=== PATIENT | male | born 1955 | race Caucasian/White ===

== ENCOUNTER → 2021-04-03 02:56 | Outpatient (CLI) | payer MEDICARE, OTHER, SELFPAY ==
[2021-04-03 22:41] LABS: SARS-CoV-2 RNA PCR Negative
== END ==
PROVIDERS: PCP Internal Medicine; Visit Provider Internal Medicine
DX: Z20.822 Contact with and (suspected) exposure to COVID-19 (principal)
CPT/HCPCS: C9803; U0003; U0005

== ENCOUNTER → 2021-05-13 03:44 | Outpatient (CLI) | payer MEDICARE, OTHER, SELFPAY ==
[2021-05-13 19:59] LABS: SARS-CoV-2 RNA PCR Negative
== END ==
PROVIDERS: PCP Internal Medicine; Visit Provider Internal Medicine
DX: Z20.822 Contact with and (suspected) exposure to COVID-19 (principal)
CPT/HCPCS: C9803; U0003; U0005

== ENCOUNTER 2021-06-05 08:27 | Outpatient (CLI) | payer MEDICARE, OTHER, SELFPAY ==
--- NOTE | 2021-06-05 08:45 | EST_ITS ---
Patient Info Name: Edgar Cardona Age: 66 years : 1955 Gender: Male Ht: 66 in Wt: 215 lbs BSA: 2.17 m2 Exam Date: 06/05/2021 9:02 AM Exam Location: [facility] Patient Status: Outpatient Admit Date: 06/05/2021 Staff Ordering Physician: Shalom Prater DO Formal Waiter/Waitress: Xiang Marie RDCS, RT Attending Provider: DR. CHOPRA Referring Physician: Moi CARVAJAL; Exercise Technologist: Xiang Marie RDCS, RT Exercise Physician: Taz Chopra DO Exam Type: CA stress echo Study Info Indications R06.02 - Shortness of breath Treadmill exercise stress echocardiogram is performed. Summary 1. 1. Negative Karson exercise stress test for ischemic ST changes by ECG criteria. 2. 2. Good functional capacity, achieving 8.9 METs of workload. 3. 3. Appropriate HR response to exercise. 4. 4. Appropriate HR recovery at 1 minute post exercise. 5. 5. Negative stress echocardiogram for ischemia by wall motion analysis. 6. 6. Patient informed of the above results. Stress Echo Findings Left Ventricle Appropriate increase in LV endocardial thickening with systole. Appropriate augmentation of contractility with systole. No wall motion abnormality. Left Ventricle Normal LV systolic function, no wall motion abnormality. Protocol: Karson Stress ECG Details Stage: REST Duration (min): 1 min : 43 sec Speed (mph): 0.0 Grade (%): 0 HR (bpm): 74 SBP (mmHg): 123 DBP (mmHg): 75 METS: --- Stage: REST Duration (min): 15 min : 58 sec Speed (mph): 0.0 Grade (%): 0 HR (bpm): 88 SBP (mmHg): 123 DBP (mmHg): 75 METS: --- Stage: STAGE 1 Duration (min): 1 min : 0 sec Speed (mph): 1.7 Grade (%): 10 HR (bpm): 106 SBP (mmHg): 123 DBP (mmHg): 75 METS: --- Stage: STAGE 1 Duration (min): 2 min : 0 sec Speed (mph): 1.7 Grade (%): 10 HR (bpm): 123 SBP (mmHg): 123 DBP (mmHg): 75 METS: --- Stage: STAGE 1 Duration (min): 3 min : 0 sec Speed (mph): 1.7 Grade (%): 10 HR (bpm): 135 SBP (mmHg): 123 DBP (mmHg): 75 METS: --- Stage: STAGE 2 Duration (min): 1 min : 0 sec Speed (mph): 2.5 Grade (%): 12 HR (bpm): 128 SBP (mmHg): 123 DBP (mmHg): 75 METS: --- Stage: STAGE 2 Duration (min): 2 min : 0 sec Speed (mph): 2.5 Grade (%): 12 HR (bpm): 132 SBP (mmHg): 175 DBP (mmHg): 45 METS: --- Stage: STAGE 2 Duration (min): 3 min : 0 sec Speed (mph): 2.5 Grade (%): 12 HR (bpm): 136 SBP (mmHg): 175 DBP (mmHg): 45 METS: --- Stage: STAGE 3 Duration (min): 1 min : 0 sec Speed (mph): 3.4 Grade (%): 14 HR (bpm): 139 SBP (mmHg): 167 DBP (mmHg): 51 METS: --- Stage: STAGE 3 Duration (min): 1 min : 4 sec Speed (mph): 0.0 Grade (%): 0 HR (bpm): 140 SBP (mmHg): 167 DBP (mmHg): 51 METS: --- Stage: RECOVERY Duration (min): 0 min : 55 sec Speed (mph): 0.0 Grade (%): 0 HR (b
== END 2021-06-05 08:28 | disposition home or self-care (01) ==
LOC: ANHCARD 08:29
PROVIDERS: PCP Internal Medicine; Visit Provider Internal Medicine
DX: R06.02 Shortness of breath (principal)
CPT/HCPCS: 93351

== ENCOUNTER 2021-09-13 16:56 | Emergency (ER) | payer MEDICARE, OTHER, SELFPAY ==
--- NOTE | ~2021-09-13 | XR_ITS ---
EXAMINATION: XR shoulder LT min 2V INDICATION: Left shoulder pain TECHNIQUE: Four views of the left shoulder are submitted. COMPARISON: None FINDINGS: Normal alignment. No fracture. There is severe osteoarthritis of the acromioclavicular join t and moderate osteoarthritis of the glenohumeral joint. Soft tissues are unremarkable. IMPRESSION: 1. No acute osseous abnormality. Reviewed, dictated and finalized at location F. [employer]
[2021-09-13 17:37] VITALS: BP 157/80; PULSE 85; RESP 15; TEMP 36.8; O2SAT 96
--- NOTE | 2021-09-13 17:51 | ED.FALL ---
HPI - Fall General Chief Complaint: Fall Stated Complaint: left shoulder pain, fall Time Seen by Provider: 09/13/21 17:50 History of Present Illness HPI Narrative: 66-year-old male presents the emergency room with complaints of left shoulder pain status post fall on the ice. States about 3 hours ago was stepping out of his truck slipped and fell forward landing on his butt and attempted to catch himself with an outstretched arm. Left shoulder pain is worse with range of motion in all tipton of movement. Denies taking any sftm-muc-tmftfat medications for pain prior to arrival. No history of left shoulder injury. Related Data Home Medications Medication Instructions Recorded Confirmed insulin pump syringe 3 mL #10 each 06/29/19 05/14/21 simvastatin 40 mg tablet 40 mg PO DAILY 06/29/19 05/14/21 triamterene 37.5 1 cap PO DAILY 07/24/20 05/14/21 mg-hydrochlorothiazide 25 mg capsule quinapril 20 mg tablet 20 mg PO DAILY 11/19/20 05/14/21 Allergies Allergy/AdvReac Type Severity Reaction Status Date / Time Sulfa (Sulfonamide Allergy Unknown unknow Verified 05/14/21 15:11 Antibiotics) Review of Systems Review of Systems: CONSTITUTIONAL: Denies fever, chills, or sweats. EYES: Denies visual changes, redness, or discharge. ENT: Denies rhinorrhea, congestion, sore throat, or otalgia. CARDIOVASCULAR: Denies chest pain, palpitations, or edema. RESPIRATORY: Denies cough or dyspnea. GASTROINTESTINAL: Denies abdominal pain, nausea, vomiting, or diarrhea. GENITOURINARY: Denies dysuria or hematuria. SKIN: Denies rash or itching. MUSCULOSKELETAL: Denies back pain, joint pain, or myalgia. Left shoulder pain per HPI NEUROLOGIC: Denies headache, numbness, dizziness, or weakness. PSYCHIATRIC: Denies anxiety or depression. [facility] Past Medical History Medical History Diabetes High cholesterol Surgical History Surgical History History of cholecystectomy 2000 History of extraction of renal calculus History of knee replacement 2009 History of lithotripsy History of pancreatectomy 2000 Family History Family History Father Family history of multiple sclerosis Sibling Patient's sister is in good health Mother Family history of arthritis Family history of congestive heart failure Social History Social History Smoking status: Never smoker Second hand tobacco smoke exposure: No Alcohol intake: never Substance use: never Substance use type: does not use Exam Narrative: GENERAL: Well-appearing, well-nourished, and in no acute distress. HEAD: Normocephalic, atraumatic. EYES: PERRLA and EOMI. ENT: Nares clear, no rhinorrhea or epistaxis. Mucous membranes moist. Oropharynx without tonsillar hypertrophy exudate or other lesions. Bilateral TMs pearly murrieta nonbulging NECK: Supple. No adenopathy or masses. No carotid bruits or JVD CHEST: Clear to auscultation. No respiratory distress. No wheezes rales or rhonchi HEART: Regular rate and rhythm. No murmur heard. Normal peripheral pulses. ABDOMEN: Soft, nontender, nondistended, normal active bowel sounds. EXTREMITIES: Left shoulder: tender to palpation to AC joint. No obvious bony abnormality. Limited range of motion in all tipton of movement. Unable to assess rotator cuff pathology due to pain. Neurovascular is distally intact. SKIN: Warm, dry, no rash. NEURO: No focal deficits. Alert and oriented x3. PSYCH: Normal mood and affect. Course Course Emergency Course: Plain x-rays of the shoulder demonstrated no acute bony abnormality. Vital Signs Vital signs: Vital Signs Temperature 36.8 C 09/13/21 17:37 Pulse Rate 85 09/13/21 17:37 Respiratory Rate 15 09/13/21 17:37 Blood Pressure 157/80 H 09/13/21 17:37 Pulse Oximetry
== END 2021-09-13 19:30 | disposition home or self-care (01) ==
LOC: ANHED 19:03
PROVIDERS: Emergency Provider Nurse Practitioner Family; PCP Internal Medicine
DX: S49.92XA Unspecified injury of left shoulder and upper arm, initial encounter (principal); E11.9 Type 2 diabetes mellitus without complications; E78.00 Pure hypercholesterolemia, unspecified; Z96.41 Presence of insulin pump (external) (internal); Z79.4 Long term (current) use of insulin; Z96.659 Presence of unspecified artificial knee joint; Z87.442 Personal history of urinary calculi; W00.0XXA Fall on same level due to ice and snow, initial encounter
CPT/HCPCS: 73030; 99283; A4565

== ENCOUNTER → 2022-02-18 00:14 | Outpatient (CLI) | payer MEDICARE, OTHER, SELFPAY ==
[2022-02-18 11:59] LABS: SARS-CoV-2 RNA PCR Negative
== END ==
PROVIDERS: PCP Internal Medicine; Visit Provider Internal Medicine
DX: R68.89 Other general symptoms and signs (principal); Z20.822 Contact with and (suspected) exposure to COVID-19
CPT/HCPCS: C9803; U0003; U0005

== ENCOUNTER 2022-12-24 14:50 | Outpatient (CLI) | payer MEDICARE, OTHER, SELFPAY ==
--- NOTE | ~2022-12-24 | US_ITS ---
Ultrasound of the right buttock CLINICAL HISTORY: Palpable area of hardening/mass at the inner cleft of the right buttock TECHNIQUE: Real-time sonographic imaging was performed of the right buttock at the area of clinical c oncern. FINDINGS: There is a superficial area of irregular shaped apparent shadowing calcification at the are a of clinical concern. No corresponding finding seen on the left side for comparison. No definite vis ible associated soft tissue mass. IMPRESSION: Irregular soft tissue calcification at the area of clinical concern, likely accounting for the area o f palpable concern. Retrospectively, this probably correlates with soft tissue calcifications in this region seen on prior CT dated 09/06/2016. Given the time interval, this is consistent with benign fin ding, of uncertain precise etiology, but consistent with nonspecific dystrophic soft tissue calcifica tion. Reviewed, dictated and finalized at location M. IMPRESSION: Irregular soft tissue calcification at the area of clinical concern, likely acc ounting for the area of palpable concern. Retrospectively, this probably correl ates with soft tissue calcifications in this region seen on prior CT dated 09/06. Given the time interval, this is consistent with benign finding, of unce rtain precise etiology, but consistent with nonspecific dystrophic soft tissue calcification.
== END 2022-12-24 14:51 | disposition home or self-care (01) ==
PROVIDERS: PCP Family Medicine; Visit Provider Family Medicine
DX: R22.2 Localized swelling, mass and lump, trunk (principal); M61.9 Calcification and ossification of muscle, unspecified
CPT/HCPCS: 76705

== ENCOUNTER 2024-05-13 10:52 | Outpatient (CLI) | payer MEDICARE, OTHER, SELFPAY ==
--- NOTE | ~2024-05-13 | XR_ITS ---
XR knee RT 3V 05/13/2024 11:06 Indication: Right knee pain Procedure: 3 views right knee Comparison: No prior studies for comparison. Findings: Moderate tricompartment osteoarthritis. No fracture, subluxation or dislocation. No signifi cant joint effusion. No foreign bodies. Impression: 1: Moderate tricompartment osteoarthritis of the right knee. Reviewed, dictated and finalized at location B. Impression: 1: Moderate tricompartment osteoarthritis of the right knee.
== END 2024-05-13 10:53 | disposition home or self-care (01) ==
LOC: MICIMG 10:53
PROVIDERS: PCP Family Medicine; Visit Provider Family Medicine
DX: M17.11 Unilateral primary osteoarthritis, right knee (principal); M25.561 Pain in right knee
CPT/HCPCS: 73562

== ENCOUNTER 2024-11-02 12:30 | Outpatient (CLI) | payer MEDICARE, OTHER, SELFPAY ==
--- NOTE | ~2024-11-02 | XR_ITS ---
Clinical Indication: Cough PA and lateral views of the chest: Comparison: 04/26/2019 Findings: Stable calcified right upper lobe nodule. The lungs are otherwise clear, without evidence o f focal consolidation or pleural effusion. Cardiomediastinal silhouette is within normal limits. Bon es and soft tissues are unremarkable. Impression: No acute abnormality. Reviewed, dictated and finalized at location . Impression: No acute abnormality.
--- OUTSIDE RECORDS SUMMARY | 2024-11-02 13:34 | XMS_ITS | Encounter Summary ---
Author Organization [facility] Address [address] [place] [address] Phone Care Team Providers Care Tape Recorder Mechanic Name Role Phone Alvin FITZPATRICK MD, Andrew Saucedo Unavailable [phone] Rex Adler MD Primary Care Provider [phone] Bob Matute MD Unavailable [phone] Shalom Prater DO Primary Care Provider Aaliyah Clark OT Unavailable Ann Penn MD Primary Care Provider [phone] Matteo Harp MD Primary Care Provider [phone] Encounter Details Date Type Department Care Team (Late st Contact Info) Description 11/26/2017 Orders Only [facility] ProviderDmitry MD [address] [place] [id number] Social History Tobacco Use Types Packs/Day Years Used Date Smoking Tobacco: Never Sex and Gender Information Value Date Recorded Sex Assigned at Not on file Legal Sex Male 7:20 PM [employer] Gender Identity Not on file Sexual Orientation Straight 03/09/2019 8: 26 AM CDT documented as of this encounter Plan of Treatment Not on file documented as of this encounter Procedures Procedure Name Priority Date/Time Associated Diagnosis Comments DISCHARGE LABORATORY CUMULATIVE REPORT 11/26/2017 12:00 AM CDT documented in this encounter Results * DISCHARGE LABORATORY CUMULATIVE REPORT (11/26/2017 12:00 AM CDT) Narrative 11/26/2017 12:00 AM CDT Ordered by an unspecified provider. us Historical Provider LAB BLOOD ORDERABLES Rosalba l Result documented in this encounter Visit Diagnoses Not on filedocumented in this encounter Additional Health Concerns Infection Onset Date Last Indicated Resolved Time MRSA Comment:Backloaded May 08, 2011 Swabs negative for MRSA on 12/06 & 12/08 Khushboo Gomez RN 12/15/2019 11/06/2010 11/06/2010 12/15/2019 9:49 AM C DT documented as of this encounter Care Teams Tape Recorder Mechanic Relationship Specialty Start Date End Date Rex Adler MD [address] [place] [address] PCP - General Internal Medicine 11/24/17 12/08/17 Shalom Prater DO [address] [place] [address] PCP - General 12/09/17 11/05/22 Ann Penn MD [address] [facility] [address] [place] [address] PCP - General Internal Medicine 11/06/22 09/01/24 Matteo Harp MD [address] [place] [address] PCP - General Family Practice 09/02/24 Andrew Esquivel III, MD [address] [place] [address] Consulting Physician Rheumatology 11/11/17 Bob Matute MD [address] [facility] [address] [place] [address] Referring Physician Endocrinology Diabetes & Metabolism 12/04/17 Aaliyah Clark OT [address] [facility] [address] [place] [address] Occupational Therapist Occupational Therapy 10/14/19 documented as of this encounter
--- OUTSIDE RECORDS SUMMARY | 2024-11-02 13:34 | XMS_ITS | Clinical Summary ---
Author Organization [facility] Address [address] [place] [address] Care Team Providers Care Account General Manager Name Role Phone Alvin FITZPATRICK MD, Andrew Saucedo Unavailable [phone] Bob Matute MD Unavailable [phone] Aaliyah Clark OT Unavailable Matteo Harp MD Primary Care Provider [phone] Allergies Active Allergy Reactions Criticality Noted Date Comments Chlorhexidine Itching,Other (See comments) High 08/06/2022 Major issues with this in his last surgery Sulfa (Sulfonamide Antibiotics) Unknown,Rash Medium 08/19/2021 Medications multivitamin capsuleIndicati ons:Vitamin Deficiency Prevention Take 1 capsule by mouth every morning Active diabetic supplies, miscellan. misc Dexcom device currently on L FA but will be moved prior to day of surgery Active insulin lispro (HumaLOG) 100 unit/mL vial for injectionIndica tions:Secondary diabetes mellitus (HCC),Post-panc reatectomy diabetes (HCC) USE HUMALOG INSULIN PER INSULIN PUMP. MAXIMUM DAILY DOSE IS 100 UNITS. 90 mL 1 Active Additional Information Patient taking differently: USE HUMALOG INSULIN PER INSULIN PUMP. MAXIMUM DAILY DOSE IS 100 UNITS.Medtronic, CGM, Indications: type 1 diabetes mellitus, Type 1B, Informant: Self, Reported on 10/16/2022 albuterol HFA (PROVENTIL HFA,VENTOLIN HFA,PROAIR HFA) 90 mcg/actuation inhaler Inhale 2 puffs every 4 (four) hours as needed for wheezing 1 each 2 Active Additional Information Patient taking differently:2 puff inhalation Every 4 hours PRN,wheezing, shortness of breath, Indications: Acute Asthma Attack, Informant: Self, Reported on 10/16/2022 simvastatin (ZOCOR) 40 mg tabletIndicatio ns:Secondary diabetes mellitus (HCC) Take one tab PO daily 90 tablet 3 2 Active Additional Information Patient taking differently: 40 mg oral Every morning, Take one tab PO daily,Indications: hyperlipidemia, Informant: Self, Reported on 10/16/2022 triamterene-hyd roCHLOROthiazid e 37.5-25 mg per tabletIndicatio ns:HTN Take 1 tablet/capsule by mouth every morning 2 Active lisinopriL (PRINIVIL,ZESTR IL) 20 mg tabletIndicatio ns:hypertension Take 1 tablet (20 mg total) by mouth every morning 2 Active pregabalin (LYRICA) 75 mg capsule Take 1 capsule (75 mg total) by mouth 2 (two) times a day 5 Active meloxicam (MOBIC) 15 mg tablet Take 1 tablet (15 mg total) by mouth daily 45 tablet 5 12/17/19 25 Active Active Problems Problem Noted Date Diagnosed Date Vitamin D deficiency 11/21/2020 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 Check tsh. Chronic fatigue 06/08/2020 Assessment & Plan (06/08/2020 1:33 PM MAINFRAME DEVELOPER): Check tsh. Arthritis of carpometacarpal (CMC) joint of righ t thumb 05/03/2020 Overview (05/03/2020): Added automatically from request for surgery [id number] Arthritis of carpometacarpal (CMC) joint of left thumb 05/03/2020 Overview (05/29/2020): Added automatically from request for surgery [id number] Insulin pump titration 12/15/2019 Assessment & Plan (12/16/2019 1:32 PM CDT): Insulin pump and supplies at bedside. Mr. Cardona is alert and oriented x 3 and has the mental capacity and manual dexterity to self-administer his own insulin pump. We reviewed the need to complete the insulin pump bedside log as a stipulation to use the insulin pump as an inpatient. Mr. Cardona agrees to complete the insulin pump bedside log as required. Insulin pump insertion site last changed 12/13/2019; due to be changed 12/16. Dexcom CGM site due to be changed 12/17/2019. Insulin pump settings adjusted to reflect current insulin requirements during this admission. INSULIN PUMP MODEL: Medtronic Insulin pump with Dexcom CGM INSULIN: Humalog SETTINGS: TIME: BASAL RATE: ICR: TDB: 40.525 units 0000 1.20 1:7.5 0300 1.75 1:7.5 0800 1.80 1:7.5 1500 1.55 1:7.5 1830 1.70 1:7.5 2000 1.90 1:7.5 SENSITIVITY: 25 TARGET: 95-110 AIT: 2 hours High risk medication use 12/15/2019 Assessment & Plan (12/15/2019 5:11 PM CDT): Intense insulin regimen in the setting of variable oral intake and post operative stress places patient at increased risk of hypoglycemia/hyperglycemia which may have serious metabolic, CV and neuro consequences. We will continue to intensely monitor blood glucose and titrate insulin as needed to optimize glycemic control to avoid hypoglycemic/hyperglycemic events. Osteoarthritis of glenohumeral joint, right 11/17 Overview (12/05/2019): Added automatically from request for surgery [id number] Assessment & Plan (12/16/2019 1:32 PM CDT): S/P right total shoulder replacement yesterday. Post-operative stress may complicate glycemic management. Good glycemic management required to promote healing. Right foot pain 07/18/2019 Assessment & Plan (09/14/2019 7:27 AM MAINFRAME DEVELOPER): Was given referral for foot xray and mri but has not done it yet. Has had rt lateral mid foot pain and swelling x 2.5 months. No injury. Assessment & Plan (07/18/2019 12:41 PM MAINFRAME DEVELOPER): Will xray and Mri. Has had rt lateral mid foot pain and swelling x 2.5 months. No injury. DISH (diffuse idiopathic skeletal hyperostosis) 11/29/2018 Assessment & Plan (06/08/2020 7:27 AM MAINFRAME DEVELOPER): CXR in 11/2017 revealed DISH of the thoracic spine. Denies any back pain. Assessment & Plan (09/14/2019 7:26 AM MAINFRAME DEVELOPER): CXR in 11/2017 revealed DISH of the thoracic spine. Denies any back pain. Assessment & Plan (08/18/2019 8:14 AM MAINFRAME DEVELOPER): CXR in 11/2017 revealed DISH of the thoracic spine. Denies any back pain. Assessment & Plan (04/20/2019 4:14 PM CDT): CXR in 11/2017 revealed DISH of the thoracic spine. Denies any back pain. Assessment & Plan (03/02/2019 7:29 AM CDT): Denies back pain. Assessment & Plan (11/29/2018 9:20 AM CDT): CXR in 11/2017 revealed DISH of the thoracic spine. Denies any back pain. Right leg swelling 11/29/2018 Assessment & Plan (11/29/2018 9:21 AM CDT): US venous doppler Rt LE (08/28/18): No DVT in right lower limb. Edema due to congestive heart failure 05/24/2018 Undifferentiated spondyloarthropathy 04/29/2018 Assessment & Plan (06/08/2020 1:32 PM MAINFRAME DEVELOPER): Images from the original note were not included. Has not been here since 08/2019. This was a phone visit from 1:05 to 1:28 pm. From history pt appears to be doing well. Has been off mtx since 11/2019 and is feeling good he states. Will order labs to recheck serologies, rt hand US and cxr and pt will come in in 1 week to get them then make visit in 1 month to re-evaluate and see joints. Takes aleve prn for pain but rarely has to use it. Past serologies showed +ULI and thyroid antibodies. Hx of right achilles tendon repair in 06/2018. Addendum 07/22/2019---discussed this at length with dr velazquez, will change his diagnosis to undifferentiated spondyloarthritis. Rt hand US 03/2019 Assessment & Plan (09/14/2019 12:29 PM MAINFRAME DEVELOPER): Images from the original note were not included. Mod cdai. Does not want to start humira at this time. [place] lost his papers and pt is upset about that and at this time does not want to start a biologic. He is going to [facility] to be with his son in law that is having a kidney transplant soon. His pharmacy did not receive the injectable mtx so he is still on 7 oral tabs of mtx per week. Wants to get over shoulder surgery then see how he is doing before considering biologics again. Past serologies showed +ULI and thyroid antibodies. Hx of right achilles tendon repair in 06/2018. Addendum 07/22/2019---discussed this at length with dr velazquez, will change his diagnosis to undifferentiated spondyloarthritis. Rt hand US 03/2019 Assessment & Plan (08/19/2019 12:16 PM MAINFRAME DEVELOPER): Images from the original note were not included. High cdai, had swollen joints with tenderness noted on exam today. Humira still not approved. Change oral mtx 17.5mg po qweek to SQ mtx. Showed pt how to inject. Pt takes insulin so he is familiar with how to use a syringe. F/u in 1 month to recheck labs. Rx for sq mtx sent to his pharmacy. Past serologies showed +ULI and thyroid antibodies. Hx of right achilles tendon repair in 06/2018. Awaiting humira approval with patient assistance. Addendum 07/22/2019---discussed this at length with dr velazquez, will change his diagnosis to undifferentiated spondyloarthritis. Rt [facility] 03/2019 Assessment & Plan (07/22/2019 9:48 AM MAINFRAME DEVELOPER): Images from the original note were not included. Mod cdai, had swollen joints with tenderness noted on exam today. Past serologies showed +ULI and thyroid antibodies. Hx of right achilles tendon repair in 06/2018. Recheck serologies and hepatitis panel and discussed adding biologic next if he does not have rt shoulder replacement in november as he is thinking of having. Until then increase mtx to 7 tabs/week and discussed changing to injectable mtx next (he just got 90 d supply of mtx and wants to finish the oral mtx before changing to sq). Discussed potential se and risks of biologics. He did state that his father had multiple sclerosis and his sister also has it. Recheck serologies and f/u in 1 month. Recent US showed mild synovial thickening improved from previous examination. Continue MTX 15mg weekly, folic acid 2mg daily, and meloxicam 15mg daily. Avoid SSZ as he is allergic to sulfa. Follow up at next scheduled appointment. Sooner if needed. Addendum 07/22/2019---discussed this at length with dr velazquez, will change his diagnosis to undifferentiated spondyloarthritis. Rt [facility] US 03/2019 Assessment & Plan (04/20/2019 4:14 PM CDT): Moderate cdai. Denies much pain. Few swollen joints without tenderness noted on exam today. Past serologies showed +ULI and thyroid antibodies. Hx of right achilles tendon repair in 06/2018. Continues to do well on current treatment. Recent US showed mild synovial thickening improved from previous examination. Continue MTX 15mg weekly, folic acid 2mg daily, and meloxicam 15mg daily. Avoid SSZ as he is allergic to sulfa. Follow up at next scheduled appointment. Sooner if needed. Assessment & Plan (03/02/2019 5:59 PM CDT): Cdai moderate but not much pain. Past serologies showed +ULI and thyroid antibodies. Xrays revealed bilateral heel enthesophytes. Hx of right achilles tendon tear repair in 06/2018. Continues to do well on current treatment. Continue MTX 15mg weekly, folic acid 2mg daily and meloxicam 15mg daily. Avoid ssz as he is allergic to sulfa. Check labs and yearly cxr. Recheck bilat hand xrays and is due for his yearly cxr. Assessment & Plan (11/29/2018 9:17 AM CDT): Cdai in remission. Denies any joint pain or stiffness. Serologies showed +ULI and thyroid antibodies. Xrays revealed bilateral heel enthesophytes. Hx of right achilles tendon tear repair in 06/2018. Continues to do well on current treatment. Continue MTX 15mg weekly, folic acid 2mg daily as he is worried about hair thinning, and meloxicam 15mg daily. Avoid ssz as he is allergic to sulfa. Recently had labs drawn and will review these once they are available. CXR neg 11/2017. Follow up in 3 months. Sooner if needed. 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 Poor oral intake yesterday, likely due to food served/pain medication. Target inpatient blood glucose is 100-180 mg/dl. Oral intake improving today. Diabetes management complicated by variable oral intake and post-operative stress. As glycemia well controlled, we recommend continuing the insulin pump at the current home settings. We will continue to intensely monitor blood glucose and titrate insulin as needed to optimize glycemic control to avoid hypoglycemic/hyperglycemic events. Recommendations: - Continue current insulin pump settings: INSULIN PUMP MODEL: Sequentatronic Insulin pump with Dexcom CGM INSULIN: Humalog SETTINGS: TIME: BASAL RATE: ICR: TDB: 40.525 units 0000 1.20 1:7.5 0300 1.75 1:7.5 0800 1.80 1:7.5 1500 1.55 1:7.5 1830 1.70 1:7.5 2000 1.90 1:7.5 SENSITIVITY: 25 TARGET: 95-110 AIT: 2 hours Discharge Recommendations: - continue insulin pump at home settings as above Follow Up: - [facility]; please contact Dr. Matute with any questions/concerns prior to next appointment. Recommendations for diabetes management were discussed with the primary team. For questions regarding this patient today, please call Ekaterina Farfan NP at [phone]. If after hours, please contact the Diabetes Fellow at [phone]. Hypertension, benign 11/26/2017 Assessment & Plan (04/29/2019 1:31 PM CDT): Blood pressure 146/79. He has been monitoring blood pressures at home in forwarding them to his primary care physician for possible medication adjustments. Mixed hyperlipidemia 11/26/2017 Assessment & Plan (04/29/2019 1:31 PM CDT): Continue simvastatin. Tolerating without side effects. Chronic right shoulder pain 11/26/2017 Assessment & Plan (09/14/2019 7:23 AM MAINFRAME DEVELOPER): Extensive OA on xray,ortho recommended rt shoulder replacement, pt is thinking he might have it in November 2019. Assessment & Plan (08/18/2019 8:14 AM MAINFRAME DEVELOPER): Extensive OA on xray,ortho recommended rt shoulder replacement, pt is thinking he might have it in November 2019. Assessment & Plan (07/18/2019 12:40 PM MAINFRAME DEVELOPER): Extensive OA on xray,ortho recommended rt shoulder replacement, pt is thinking he might have it in November 2019. Assessment & Plan (04/20/2019 4:16 PM CDT): OA on past x-ray. Noted recent recurrence of pain. Notes pain localized to his biceps tendon. +Speed's test. Suspicious for biceps tendonitis. Will give order for x- ray and PT. If no benefit with PT, then may consider MRI vs referral to ortho. Assessment & Plan (11/29/2018 9:19 AM CDT): OA on x-ray. Referred to PT and MRI but did not do as his pain resolved. Arthropathy, unspecified 11/25/2017 History of renal calculi 03/05/2017 Achilles tendinitis 12/12/2016 Lentigo 04/02/2016 Actinic keratosis 04/02/2016 Encounter for long-term (current) use of medicat ions 10/03/2015 Assessment & Plan (06/08/2020 7:28 AM MAINFRAME DEVELOPER): cxr neg 05/07 (except for DISH of T spine) Xrays showed enthesophytes left heel and rt heel allx to sulfa, avoid sulfasalazine Quant gold neg 11/2018 Advised to get shingrix, flu vaccine, prevnar 14, tdap and pneumovax on 07/18/19 visit. Avise 07/07---high thyroid antibodies and a slightly elevated + ULI Assessment & Plan (09/14/2019 7:23 AM MAINFRAME DEVELOPER): cxr neg 05/07 (except for DISH of T spine) Xrays showed enthesophytes left heel and rt heel allx to sulfa, avoid sulfasalazine Quant gold neg 11/2018 Advised to get shingrix, flu vaccine, prevnar 14, tdap and pneumovax on 07/18/19 visit. Assessment & Plan (08/18/2019 8:15 AM MAINFRAME DEVELOPER): cxr neg 05/07 (except for DISH of T spine) Xrays showed enthesophytes left heel and rt heel allx to sulfa, avoid sulfasalazine Quant gold neg 11/2018 Hep B and C neg 06/2019 Avise 06/2019---high thyroid antibodies and a slightly elevated + ULI. Advised to get shingrix, flu vaccine, prevnar 14, tdap and pneumovax on 07/18/19 visit. Assessment & Plan (07/18/2019 12:42 PM MAINFRAME DEVELOPER): cxr neg 05/07 (except for DISH of T spine) Xrays showed enthesophytes left heel and rt heel allx to sulfa, avoid sulfasalazine Quant gold neg 11/2018 Advised to get shingrix, flu vaccine, prevnar 14, tdap and pneumovax on 07/18/19 visit. Assessment & Plan (04/20/2019 4:14 PM CDT): cxr neg 12/01/17 (except for DISH of T spine) Xrays showed enthesophytes left heel and rt heel allx to sulfa, avoid sulfasalazine Assessment & Plan (03/02/2019 7:30 AM CDT): cxr neg 12/01/17 (except for DISH of T spine) Xrays showed enthesophytes left heel and rt heel allx to sulfa, avoid sulfasalazine Assessment & Plan (11/29/2018 9:18 AM CDT): CXR negative: 11/2017 (except for DISH of T-spine) Xrays showed enthesophytes of bilateral heels. Allergic to sulfa, avoid ssz. [facility] current use of insulin 10/03/2015 Secondary diabetes mellitus 03/08/2015 Left lower quadrant pain 03/08/2015 Osteoarthritis of shoulder 09/19/2014 Adhesive capsulitis of shoulder 09/19/2014 Osteoarthritis of knee 09/01/2014 Diabetic hypoglycemia 05/06/2011 Surgical follow-up care 05/01/2009 BMI 37.0-37.9, adult 04/17/2006 Kidney stone Resolved Problems Problem Noted Date Diagnosed Date Resolved Date Abnormal thyroid blood test 12/09/2017 07/01/2021 Encounters Date Type Department Care Team Description 11/01/2024 Orders Only [facility] Orthopaedic Surgery [address] [place] [address] 2nd [address] [place] [address] Clayton Bradley MD Nontraumatic complete tear of left rotator cuff (Primary Dx) 10/31/2024 Telephone [facility] Orthopaedic Surgery [address] [place] [address] 2[address] Floor [address] [place] [address] Clayton Bradley MD 10/27/2024 11:40 AM CDT - 10/27/2024 11:59 PM CDT Hospital Encounter [facility] Radiology [address] [facility] [address] Left shoulder pain, unspecified chronicity Discharge Disposition: Discharge to home or self care 10/26/2024 8:45 AM CDT Office Visit [facility] Orthopaedic Surgery [address] [facility] [address] [place] [address] [place] [address] Clayton Bradley MD Left shoulder pain, unspecified chronicity (Primary Dx); Nontraumatic complete tear of left rotator cuff 10/26/2024 8:23 AM CDT - 10/26/2024 11:59 PM CDT Hospital Encounter [facility] [address] [place] [address] Clayton Bradley MD Left shoulder pain, unspecified chronicity Discharge Disposition: Discharge to home or self care 10/26/2024 Orders Only [facility] Orthopaedic Surgery [address] [facility] [address]th [place] [address] [place] [address] Clayton Bradley MD Left shoulder pain, unspecified chronicity (Primary Dx) from Last 3 Months Immunizations Immunization Administration Dates Next Due Influenza, Quadrivalent, Spl it, Preservative Free, Intramuscular 05/25/2018,05/24/2018 Influenza, Trivalent, Preservative Free, Intramu scular 05/04/2007 Tdap 01/20/2022 Surgical History Surgery Date Site/Laterality Comments NV LITHOTRIPSY XTRCORP SHOCK WAVE Renal Lithotripsy - 04/22, 05/23, 07/24 (Added by GERARD Conv) KNEE SURGERY 07/20/2008 - 07/19/2009 Left Knee Surgery Left - 04/17/09 Partial left knee replacement- hardware in place FLUORO GUIDED INJECTION SHOULDER RIGHT 09/09/2019 Right VENTRAL HERNIA REPAIR 07/20/2002 - 07/19/2003 Ventral Hernia Repair - 10/14/02 (Added by GERARD Conv) LITHOTRIPSY 03/20/2020 - 04/18/2020 PANCREATECTOMY 07/20/2000 - 07/19/2001 CATARACT EXTRACTION W/ INTRAOCULAR LENS IMPLANT 10/18/2020 - 11/16/2020 Bilateral SHOULDER ARTHROPLASTY 07/20/2019 - 07/19/[address] GALLBLADDER SURGERY 07/20/2000 - 07/19/2001 at same time as pancreatectomy COLONOSCOPY ACHILLES TENDON REPAIR 07/20/2017 - 07/19/2018 Right THUMB SURGERY 07/20/2020 - 07/19/2021 Left TRACHEOSTOMY 07/20/2000 - 07/19/2001 pancreatitis, staph infection, 7 week hospital stay, temp had trach and had it reversed Medical History Medical History Date Comments Acute biliary pancreatitis w ithout infection or necrosis Gallstone pancreatitis - (Ad ded by TW Conv) Aftercare following joint re placement surgery Aftercare following joint re placement - (Added by TW Conv) Left lower quadrant pain Abdomin al pain, chronic, left lower quadrant - (Added by TW Conv) Dyspnea stress test in 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 post pancreatectomy s/p necrotising pancreatitis 2000. A1C 6.4 in 02/2021 Kidney stone last 01/2020 Hyperlipidemia on statin Hypertension well controlled Arthritis CUELLAR (dyspnea on exertion) 05/2021 while on Peloton, stress test negative in media Sinus infection 04/2021 sx resolved, sli ght clear drainage remains Asthma well controlled DISH (diffuse idiopathic ske letal hyperostosis) Family History Medical History Relation Name Comments Heart failure Mother Multiple sclerosis Other 1 Multiple Sclerosis - (Added by TW Conv) Cancer Other 2 Cancer - prosta te (Added by TW Conv) Diabetes type II Other 3 Type II Rebecca betes Mellitus - (Added by TW Conv) Anesthesia problems Neg Hx Relation Name Status Comments Mother Other 1 Other 2 Other 3 Social History Tobacco Use Types Packs/Day Years Used Date Smoking Tobacco: Never Passive Smoke Exposure: Never Smokeless Tobacco: Never Tobacco Cessation:Counseling Given: Not Answered Alcohol Use Standard Drinks/Week Comments Yes 0 (1 standard drink = 0.6 oz pur e alcohol) AUDIT-C Answer Date Recorded Q1: How often do you have a drink containing alc ohol? 2-4 times a month 11/13/2022 Q2: How many drinks containi ng alcohol do you have on a typical day when you are drinking? 1 or 2 11/13/2022 Q3: How often do you have si x or more drinks on one occasion? Never 11/13/2022 Personal Safety Answer Date Recorded Have you ever been in or are you currently in a harmful physical or emotional relationship or is someone making you feel afraid or unsafe? Denies 11/13/2022 Sex and Gender Information Value Date Recorded Sex Assigned at Not on file Legal Sex Male 7:20 PM MAINFRAME DEVELOPER Gender Identity Not on file Sexual Orientation Straight 03/09/2019 8: 26 AM CDT Obstetrics History Last Filed Vital Signs Vital Sign Reading Time Taken Comments Blood Pressure 109/64 11/13/2022 10:30 AM CDT Pulse 64 11/13/2022 10:35 AM CDT Temperature 36.4 C (97.5 F) 11/13/2022 10:05 AM CDT Respiratory Rate 21 11/13/2022 10:35 AM CDT Oxygen Saturation 93% 11/13/2022 10:35 AM CDT Inhaled Oxygen Concentration - - Weight 98.4 kg (217 lb) 10/26/2024 8:40 AM CDT Height 167.6 cm (5' 6 ) 10/26/2024 8:40 AM CDT Body Mass Index 35.02 10/26/2024 8:40 AM CDT Plan of Treatment Health Maintenance Due Date Last Done Comments Colon Cancer Screening-Colonoscopy 1954 Depression Screening 1955 Dilated Eye Exam 1954 Foot Exam 1954 Hepatitis B Screening 02/22/1972 Abdominal Aortic Aneurysm (A AA) Screen 2019 03/08/2015 Well Visit 65+ 2019 Albumin Creatinine Ratio, Urine 02/26/2022 Lipid Panel 02/26/2022 02/26/2021, 12/15/2019 eGFR 02/26/2022 02/26/2021, 07/2019, 07/18/2019, Additional history exists Hemoglobin A1C 08/20/2022 02/17/2022, 2 11/2021, 07/01/2021, Additional history exists Fall Risk Assessment 11/14/2023 11/13/2022 Covid-19 Vaccine (3 - 2023-2 5 season) 2024 10/02/2020, 08/30/2020 Influenza Vaccine (Season Ended) 2025 04/24/2020, 07/26/2019, 03/20/2019, Additional history exists DTaP/Tdap/Td Vaccine (3 - Td or Tdap) 01/21/2032 01/20/2022, 08/13/2019 Hepatitis C Screening Completed 11/26/2018 Pneumococcal vaccine 65+ Completed 07/26/2019, 07/2018 Zoster Vaccine Completed 04/24/2020, 08/13/2019 Medical Devices Implanted Type Area Ux Engineer Device Identifier Shelf Expiration Date Model / Serial / Lot Admazely [id number] Aequalis 29mm Reverse Long Post Shoulder Baseplate Glenoid Spencer - [id number] - [id number] Implanted:Qty: 1 on 12/15/2019 by Clayton Bradley MD at [facility] Right: Shoulder Myer Inc [id number] 08/20/2022 [id number] / [id number] / Tornier Inc [id number] Aequalis 36mm Center Reverse Ii Centered Sphere Glenoid Cocr 29mm - [id number] - [id number] Implanted:Qty: 1 on 12/15/2019 by Clayton Bradley MD at [facility] Right: Shoulder Myer Inc [id number] 01/12/2024 [id number] / [id number] / Tornier Inc [id number] Aequalis Reversed 4.5mm 41mm Compression Glenoid Screw Baseplate - [id number] Implanted:Qty: 1 on 12/15/2019 by Clayton Bradley MD at [facility] Right: Shoulder Myer Inc [id number] / / Tornier Inc [id number] Aequalis Reversed 4.5mm 23mm Compression Glenoid Screw Baseplate - [id number] Implanted:Qty: 1 on 12/15/2019 by Clayton Bradley MD at [facility] Right: Shoulder Marquez [employer] Inc [id number] / / Tornier Inc [id number] Aequalis 4.5mm 32mm Lock Multidirectional Self Tap Shoulder Screw Latex Free - [id number] Implanted:Qty: 1 on 12/15/2019 by Clayton Bradley MD at [facility] Right: Shoulder [employer]quez [employer] Inc [id number] / / Tornier Inc [id number] Aequalis 4.5mm 35mm Lock Multidirectional Self Tap Shoulder Screw Latex Free - [id number] Implanted:Qty: 1 on 12/15/2019 by Clayton Bradley MD at [facility] Right: Shoulder [employer]quez [employer] Inc [id number] / / Daniel Biomet Inc [id number] 12mm 130mm Shoulder Stem Humeral Trabecular Metal Tivanium - [id number] Implanted:Qty: 1 on 12/15/2019 by Clayton Bradley MD at [facility] Right: Shoulder Daniel Biomet Inc [id number] 09/16/2029 [id number] / / [id number] Daniel Biomet Inc [id number] 36mm Reverse Humerus 7d +6mm Offset Standard Liner Shoulder - [id number] Implanted:Qty: 1 on 12/15/2019 by Clayton Bradley MD at [facility] Right: Shoulder Daniel Biomet Inc [id number] 06/18/2027 [id number] / / [id number] Arthrex Inc Ar-8978-Cp Internalbrace Kit Hand Wrist Set Implant Ligament Augmentation - [id number] Implanted:Qty: 1 on 06/17/2021 by Ray Doran MD at [facility] Left: Wrist Arthrex Inc 04/18/2026 AR-8978-CP / / [id number] Arthrex Inc Internalbrace Kit Hand Wrist Set Implant Ligament Augmentation Ar-8978-Cp - [id number] Implanted:Qty: 1 on 11/13/2022 by Ray Doran MD at [facility] Right: Wrist Arthrex Inc [id number] 04/18/2027 AR-8978-CP / / [id number] Explanted Type Area Ux Engineer Device Identifier Shelf Expiration Date Model / Serial / Lot Microaire [employer] Instruments [id number] Edwar 3/32in 9in 2 Trocar Pin Fixation Nonsterile - [id number] Explanted:Qty: 1 on 12/15/2019 at [facility] Right: Shoulder [employer]aire [employer] [id number] S / / Procedures Procedure Name Priority Date/Time Associated Diagnosis Comments US SHOULDER LEFT COMPLETE Schedule Routine, Read Routine (OP Routine) 10/27/2024 12:02 PM CDT Left shoulder pain, unspecified chronicity XR SHOULDER LEFT 2 OR MORE VIEWS Schedule Routine, Read Routine (OP Routine) 10/26/2024 8:37 AM CDT Left shoulder pain, unspecified chronicity POCT HEMOGLOBIN A1C Routine 02/17/2022 9:01 AM CDT 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) BASIC METABOLIC PANEL Routine 02/26/2021 9:15 AM CDT Secondary diabetes mellitus (HCC) LIPID PANEL Routine 02/26/2021 9:15 AM CDT Mixed hyperlipidemia ALBUMIN CREATININE RATIO, URINE Routine 02/26/2021 9:15 AM CDT Secondary diabetes mellitus (HCC) HEPATITIS PANEL, ACUTE Routine 11/26/2018 12:[address] ABDOMEN PELVIS WO CONTRAST Routine 03/08/2015 2:43 PM CDT from Last 3 Months or Most Recently Relevant to Health Maintenance Results * US Shoulder Left Complete (10/27/2024 12:02 PM CDT) Anatomical Region Laterality Modality Shoulder Left Ultrasound 10/27/2024 12:0 7 PM CDT Impressions 10/27/2024 12:07 PM CDT Full-thickness, near full width tear of the supraspinatus and junctional fibers with 2 cm retraction. Electronically signed by: Dennis Suarez M.D. Narrative 10/27/2024 12:07 PM CDT EXAMINATION: Left shoulder sonogram, complete HISTORY: Left shoulder pain. COMPARISON: Comparison is made with radiographs dated 10/26/2024 FINDINGS: Real-time sonographic evaluation of the left shoulder was performed. The long head biceps tendon is normal. There is no subluxation. There is mild biceps tenosynovitis.. There is no subacromial-subdeltoid bursitis. The subscapularis is intact. There is a full-thickness, near full width tear of the supraspinatus extending to the junctional fibers. There is proximally 2 cm retraction. The infraspinatus is intact. There is mild fatty infiltration of the supraspinatus and infraspinatus muscles. There is no glenohumeral joint effusion.. Procedure Note Dennis Suarez MD - 10/27/2024 EXAMINATION: Left shoulder sonogram, complete HISTORY: Left shoulder pain. COMPARISON: Comparison is made with radiographs dated 10/26/2024 FINDINGS: Real-time sonographic evaluation of the left shoulder was performed. The long head biceps tendon is normal. There is no subluxation. There is mild biceps tenosynovitis.. There is no subacromial-subdeltoid bursitis. The subscapularis is intact. There is a full-thickness, near full width tear of the supraspinatus extending to the junctional fibers. There is proximally 2 cm retraction. The infraspinatus is intact. There is mild fatty infiltration of the supraspinatus and infraspinatus muscles. There is no glenohumeral joint effusion.. IMPRESSION: Full-thickness, near full width tear of the supraspinatus and junctional fibers with 2 cm retraction. Electronically signed by: Dennis Suarez M.D. Clayton Bradley MD [facility] US PROCEDURES Final Re sult * XR Shoulder Left 2+ View (10/26/2024 8:37 AM CDT) Anatomical Region Laterality Modality Upper Extremities, Shoulder Left Comp uted Radiography 10/26/2024 8:43 AM CDT Impressions 10/26/2024 8:43 AM CDT Mild left shoulder osteoarthritis. Electronically signed by: Jigar Nobles M.D. Narrative 10/26/2024 8:43 AM CDT EXAMINATION: XR SHOULDER LEFT 2 OR MORE VIEWS HISTORY: Left shoulder pain FINDINGS: 4 views of the left shoulder were performed with comparison made to 09/17/2021. Alignment of the shoulder is normal. There is moderate acromioclavicular and mild glenohumeral osteoarthritis. There is no acute fracture of the shoulder. Procedure Note Jigar Nobles MD PhD - 10/26/2024 EXAMINATION: XR SHOULDER LEFT 2 OR MORE VIEWS HISTORY: Left shoulder pain FINDINGS: 4 views of the left shoulder were performed with comparison made to 09/17/2021. Alignment of the shoulder is normal. There is moderate acromioclavicular and mild glenohumeral osteoarthritis. There is no acute fracture of the shoulder. IMPRESSION: Mild left shoulder osteoarthritis. Electronically signed by: Jigar Nobles M.D. Clayton Bradley MD IMG XR PROCEDURES Final Re sult * POCT hemoglobin A1c (02/17/2022 9:01 AM CDT) Hemoglobin A1C, POC 6.4 Blood specimen (specimen) 02/17/2022 9:01 AM CDT Mian Kate MD POINT OF CARE TEST ORDERABLE S Final Result * Albumin Creatinine Ratio, Urine (02/26/2021 9:15 AM CDT) Creatinine, ur 116 20 - 320 mg/dL [facility] Microalbumin, ur 0.3 See Note: mg/dL [facility] Comment: Reference Range: Reference Range Not established Microalbumin/creat ratio 3 <30 mcg/mg creat [facility] Comment: The ADA defines abnormalities in albumin excretion as follows: Category Result (mcg/mg creatinine) Normal <30 Microalbuminuria 30-299 Clinical albuminuria > OR = 300 The ADA recommends that at least two of three specimens collected within a 3-6 month period be abnormal before considering a patient to be within a diagnostic category. Urine 02/26/2021 9:15 AM CDT 02/26/2021 9:20 AM CDT Narrative [facility] - 03/01/2021 8:08 PM CDT FASTING:YES PATIENT REFUSED SOME TESTING; PATIENT ENCOURAGED TO RETURN. FASTING: YES us Mian Kate MD LAB URINE ORDERABLES Final R esult [facility] [id number] [place] [address] * Lipid panel (02/26/2021 9:15 AM CDT) Cholesterol 161 <200 mg/dL [facility] HDL 51 > OR = 40 mg/dL [facility] Triglycerides 78 <150 mg/dL [facility] LDL 93 mg/dL (calc) [facility] Comment: Reference range: <100 Desirable range <100 mg/dL for primary prevention; <70 mg/dL for patients with CHD or diabetic patients with > or = 2 CHD risk factors. LDL-C is now calculated using the Nagi-Louis calculation, which is a validated novel method providing better accuracy than the Friedewald equation in the estimation of LDL-C. Nagi SS et al. WILLIAN. 2013;310(19): 2857-9282 (http://education.MiFi/faq/PAW151) Chol/HDL ratio 3.2 <5.0 (calc) [facility] Non-HDL, (LDL+VLDL) 110 <130 mg/dL (calc) [facility] Comment: For patients with diabetes plus 1 major ASCVD risk factor, treating to a non-HDL-C goal of <100 mg/dL (LDL-C of <70 mg/dL) is considered a therapeutic option. Blood specimen (specimen) 02/26/2021 9:15 AM CDT 02/26/2021 9:20 AM CDT Narrative [facility] - 03/01/2021 8:08 PM CDT FASTING:YES PATIENT REFUSED SOME TESTING; PATIENT ENCOURAGED TO RETURN. FASTING: YES Mian Kate MD LAB BLOOD ORDERABLES Final R esult [facility] [id number] [place] [id number] * (ABNORMAL) Basic metabolic panel (02/26/2021 9:15 AM CDT) Glucose 148(H) 65 - 99 mg/dL [facility] [place] Comment: Fasting reference interval For someone without known diabetes, a glucose value >125 mg/dL indicates that they may have diabetes and this should be confirmed with a follow-up test. BUN 23 7 - 25 mg/dL [facility] [place] Creatinine 1.01 0.70 - 1.25 mg/dL [facility] [place] Comment: For patients >49 years of age, the reference limit for Creatinine is approximately 13% higher for people identified as -Samoan. eGFR NON-AFR. PALESTINIAN 77 > OR = 60 mL/min/1 .73m2 [facility] [place] EGFR 89 > OR = 60 mL/min/1 .73m2 [facility] [place] BUN/creat ratio NOT APPLICABLE 6 - 22 (calc) [facility] [place] Sodium 137 135 - 146 mmol/L [facility] [place] Potassium, pl 4.1 3.5 - 5.3 mmol/L [facility] [place] Chloride 101 98 - 110 mmol/L [facility] [place] CO2 31 20 - 32 mmol/L [facility] [place] Calcium 9.5 8.6 - 10.3 mg/dL [facility] [place] Blood specimen (specimen) 02/26/2021 9:15 AM CDT 02/26/2021 9:20 AM CDT Narrative [facility] - 03/01/2021 8:08 PM CDT FASTING:YES PATIENT REFUSED SOME TESTING; PATIENT ENCOURAGED TO RETURN. FASTING: YES Mian Kate MD LAB BLOOD ORDERABLES Final R esult [facility] [address] [facility] [place] [phone] * Hepatitis panel, acute (11/26/2018 12:10 PM CDT) Hep A IgM Negative Negative [facility] - 01 HepBsAg Negative Negative [facility] - 01 Hep B core IgM Negative Negative [facility] - 01 Hep C Ab <0.1 0.0 - 0.9 s/co ratio [facility] - 01 Comment: Negative: < 0.8 Indeterminate: 0.8 - 0.9 Positive: > 0.9 The CDC recommends that a positive HCV antibody result be followed up with a HCV Nucleic Acid Amplification test (463803). 11/26/2018 12:1 0 PM CDT 11/26/2018 Narrative [facility] - 11/30/2018 7:06 PM CDT Performed at: [address] [place] [id number] Supervisor [employer] Testing: Charles Schmidt PhD, Phone: [phone] us Katja [facility] MICROBIOLOGY - GENERAL ORDERABLES Final Result Performing Organization Address [facility] Co de Phone Number [facility] - 01 * CT Abdomen Pelvis WO Contrast (03/08/2015 2:43 PM CDT) Anatomical Region Laterality Modality Body N/A Computed Tomogra phy 03/08/2015 2:43 PM CDT Narrative 03/08/2015 3:25 PM CDT ANA ROQUE M.D. FINAL REPORT ACC# Date Time Exam [id number] Mar 08, 2015 14:43:[id number] Abd & Pelvis wo cont EXAMINATION: CT of the abdomen pelvis without contrast HISTORY: Abdominal pain TECHNIQUE: CT of the abdomen pelvis was performed without contrast according to standard protocol. COMPARISON: None available FINDINGS: There is atelectasis at the bases but otherwise, lung bases are clear. Heart size is normal. There is no pericardial effusion. There are mitral valve annular calcifications. The liver is normal. No focal liver lesions. No intrahepatic or extrahepatic duct dilatation. The spleen is unremarkable. There is nodular thickening in the left adrenal gland that maintains adrenal shape. Right adrenal gland is normal. There are nonobstructing renal stones within both kidneys measuring up to 4 mm in the right upper pole and 3 mm within the left lower pole. Left kidney is malrotated. The pancreas is not well identified on this noncontrast examination. There is likely a duodenal diverticulum. There is atherosclerosis of the aorta. The small bowel and colon are normal in caliber. There is no obstruction. There is a segment of colon the junction of the descending and sigmoid colon with pericolonic stranding surrounding multiple diverticula. There is no evidence of fluid collection or intraperitoneal free air.There is no retroperitoneal mesenteric or inguinal adenopathy. The bladder is normal. There is seminal vesicle calcifications. Bone windows demonstrate no suspicious lytic or blastic lesions. IMPRESSION: 1. Uncomplicated diverticulitis at the junction of the descending and sigmoid colon. No focal fluid collection or perforation. 2. Nephrolithiasis. No hydronephrosis. These findings were discussed with Dr. Matute by Dr. Roque at 3:20 p.m. on the day of the study. Requested By: Dictated By: ANA ROQUE M.D. on Mar 08 2015 3:25P This document has been electronically signed by: ANA ROQUE M.D. on Mar 08 2015 3:25P [id number] Procedure Note Provider, MD Dmitry - 11/09/2016 ANA ROQUE M.D. FINAL REPORT ACC# Date Time Exam [id number] Mar 08, 2015 14:43:[id number] Abd & Pelvis wo cont EXAMINATION: CT of the abdomen pelvis without contrast HISTORY: Abdominal pain TECHNIQUE: CT of the abdomen pelvis was performed without contrast according to standard protocol. COMPARISON: None available FINDINGS: There is atelectasis at the bases but otherwise, lung bases are clear. Heart size is normal. There is no pericardial effusion. There are mitral valve annular calcifications. The liver is normal. No focal liver lesions. No intrahepatic or extrahepatic duct dilatation. The spleen is unremarkable. There is nodular thickening in the left adrenal gland that maintains adrenal shape. Right adrenal gland is normal. There are nonobstructing renal stones within both kidneys measuring up to 4 mm in the right upper pole and 3 mm within the left lower pole. Left kidney is malrotated. The pancreas is not well identified on this noncontrast examination. There is likely a duodenal diverticulum. There is atherosclerosis of the aorta. The small bowel and colon are normal in caliber. There is no obstruction. There is a segment of colon the junction of the descending and sigmoid colon with pericolonic stranding surrounding multiple diverticula. There is no evidence of fluid collection or intraperitoneal free air.There is no retroperitoneal mesenteric or inguinal adenopathy. The bladder is normal. There is seminal vesicle calcifications. Bone windows demonstrate no suspicious lytic or blastic lesions. IMPRESSION: 1. Uncomplicated diverticulitis at the junction of the descending and sigmoid colon. No focal fluid collection or perforation. 2. Nephrolithiasis. No hydronephrosis. These findings were discussed with Dr. Matute by Dr. Roque at 3:20 p.m. on the day of the study. Requested By: Dictated By: ANA ROQUE M.D. on Mar 08 2015 3:25P This document has been electronically signed by: ANA ROQUE M.D. on Mar 08 2015 3:25P [id number] Historical Provider MD SHAFFER CT PROCEDURES Final R esult from Last 3 Months or Most Recently Relevant to Health Maintenance [place] [address] [facility] MEDICARE [facility] MEDICARE [place] MED[place] [facility] Advance Directives For more information, please contact: [phone] * Full Code (Latest Code Status on File) Date Activated Date Inactivated Comments 12/15/2019 7:18 PM 12/16/2019 7:18 PM Care Teams Account General Manager Relationship Specialty Start Date End Date Matteo Harp MD [address] [place] [address] PCP - General Family Practice 09/02/24 Andrew Velazquez III, MD [address] [facility] [address] [place] [address] Consulting Physician Rheumatology 11/11/17 Bob Matute MD [address] [facility] [address] [place] [address] Referring Physician Endocrinology Diabetes & Metabolism 12/04/17 Aaliyah Clark OT [address] [address] Occupational Therapist Occupational Therapy 10/14/19
--- OUTSIDE RECORDS SUMMARY | 2024-11-02 13:34 | XMS_ITS | Clinical Summary ---
Author Organization [facility] Address [address] [place] [address] Care Team Providers Care Linux Solaris Administrator Name Role Phone Shalom Prater DO Primary Care Provider [phone] Allergies Active Allergy Reactions Criticality Noted Date Comments Sulfa Antibiotics Rash Low 08/19/2021 Medications quinapril 20 MG tablet Take 20 mg by mouth daily. Active simvastatin 40 MG tablet Take 40 mg by mouth nightly at bedtime. Active triamterene-hyd roCHLOROthiazid e 37.5-25 MG tablet Take 1 tablet by mouth daily. Active HUMALOG 100 UNIT/ML injection (VIAL) USE PER INSULIN PUMP. MAX DAILY DOSE IS 100 UNITS 07/26/2021 Active Family History Medical History Relation Comments Multiple Sclerosis Father CHF Mother Relation Status Comments Father Mother Social History Tobacco Use Types Packs/Day Years Used Date Smoking Tobacco: Never Smokeless Tobacco: Never Alcohol Use Standard Drinks/Week Comments Yes 0 (1 standard drink = 0.6 oz pur e alcohol) occas. Sex and Gender Information Value Date Recorded Sex Assigned at Not on file Legal Sex Male 2:05 PM CUSTOMER SUCCESS REPRESENTATIVE Gender Identity Not on file Sexual Orientation Not on file Last Filed Vital Signs Vital Sign Reading Time Taken Comments Blood Pressure 116/68 08/29/2021 7:38 AM CUSTOMER SUCCESS REPRESENTATIVE Pulse 87 08/29/2021 7:38 AM CUSTOMER SUCCESS REPRESENTATIVE Temperature 36.7 C (98 F) 08/29/2021 7:38 AM CUSTOMER SUCCESS REPRESENTATIVE Respiratory Rate 16 08/29/2021 7:38 AM CUSTOMER SUCCESS REPRESENTATIVE Oxygen Saturation 98% 08/29/2021 7:38 AM CUSTOMER SUCCESS REPRESENTATIVE Inhaled Oxygen Concentration - - Weight 97.5 kg (215 lb) 08/19/2021 12:00 PM CUSTOMER SUCCESS REPRESENTATIVE Height 167.6 cm (5' 6 ) 08/19/2021 12:00 PM CUSTOMER SUCCESS REPRESENTATIVE Body Mass Index 34.7 08/19/2021 12:00 PM CUSTOMER SUCCESS REPRESENTATIVE Plan of Treatment Health Maintenance Due Date Last Done Comments Hepatitis C 02/22/1973 Annual Medicare Wellness Visit 2019 Pneumococcal Vaccine: 50+ Years (2 of 2 - PPSV23) 07/26/2020 07/26/2019 COVID-19 Vaccine (4 - 2023-2 5 season) 2024 06/06/2021, 10/02/2020, 08/30/2020 RSV Immunization or 60+ Years (1 - 1-dose 75+ series) 2029 DTaP, Tdap and Td Vaccines ( 2 - Td or Tdap) 08/13/2029 08/13/2019 Colorectal Cancer Screening Colonoscopy (10 Years) 08/29/2031 08/29/2021, 08/29/2021 Zoster Vaccines Completed 04/24/2020, 08/13/2019 Meningococcal B Vaccine Aged Out No l onger eligible based on patient's age to complete this topic Meningococcal Vaccine Aged Out No haley feliciano eligible based on patient's age to complete this topic RSV Immunizations Under 20 Months Aged Out No longer eligible b ased on patient's age to complete this topic Medical Devices Implanted Type Area Mat Gauger Device Identifier Shelf Expiration Date Model / Serial / Lot Knee Shoulder Procedures Procedure Name Priority Date/Time Associated Diagnosis Comments COLONOSCOPY Routine 08/29/2021 6:03 AM CUSTOMER SUCCESS REPRESENTATIVE from Last 3 Months or Most Recently Relevant to Health Maintenance Insurance MEDICARE [facility] [employer] Care Teams Linux Solaris Administrator Relationship Specialty Start Date End Date Shalom Prater DO [address] [place] [id number] PCP - General INTERNAL MEDICINE 08/29/21
--- OUTSIDE RECORDS SUMMARY | 2024-11-02 13:34 | XMS_ITS | Clinical Summary ---
Author Organization [facility] Address [address] [place] [address] Care Team Providers Care Construction Lineman Name Role Phone Unavailable Primary Care Provider Unavailabl e Encounters Date Type Department Care Team Description 11/01/2024 External Device Data STL ABSTRACTION Provider, Abstract 10/25/2024 External Device Data STL ABSTRACTION Provider, Abstract 10/10/2024 1:05 PM CDT Ancillary Procedure [facility] [address] [place] [address] Sahil Correia MD Kidney stone 10/05/2024 External Device Data STL ABSTRACTION Provider, Abstract 09/26/2024 External Device Data STL ABSTRACTION Provider, Abstract 09/13/2024 External Device Data STL ABSTRACTION Provider, Abstract 08/11/2024 External Device Data STL ABSTRACTION Provider, Abstract from Last 3 Months Social History Tobacco Use Types Packs/Day Years Used Date Smoking Tobacco: Never Assessed Sex and Gender Information Value Date Recorded Sex Assigned at Not on file Legal Sex Male 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 Gender Identity Not on file Sexual Orientation Not on file Plan of Treatment Health Maintenance Due Date Last Done Comments DIABETES ANNUAL FOOT EXAM 02/22/1972 DIABETES ANNUAL RETINAL EXAM 02/22/1972 DIABETES MICROALBUMIN ANNUAL SCREEN 02/22/1972 LDL CHOLESTEROL ANNUAL 02/22/1972 PNEUMOCOCCAL VACCINE 50+ YEA RS (1 of 2 - PCV) 1973 ZOSTER VACCINE (1 of 2) 1973 FIT-DNA Q 3 years 1999 FIT/FOBT Q 1 year 1999 Flex Sig/CT Colonography Q 5 years 1999 RSV VACCINE (60+ or ) (1 - Risk 60-74 years 1-dose series) 2014 DIABETES HBA1C Q 6 MONTHS 08/20/2022 02/17/2022 INFLUENZA VACCINE (#1) 2024 8, 05/24/2018, 05/04/2007 COLORECTAL SCREENING 08/29/2031 08/29/2021 Colorectal Cancer Screening 08/29/2031 DTAP/TDAP/TD VACCINES (2 - T d or Tdap) 01/21/2032 01/20/2022 Procedures Procedure Name Priority Date/Time Associated Diagnosis Comments XR ABDOMEN 1 VW Routine 10/10/2024 1:15 PM CDT Kidney stone from Last 3 Months Results * XR ABDOMEN 1 VW (10/10/2024 1:15 PM CDT) Anatomical Region Laterality Modality Abdomen Computed Radiogr aphy 10/10/2024 1:15 PM CDT Impressions 10/10/2024 2:44 PM CDT IMPRESSION: Small bilateral renal calculi are suspected. If further assessment is indicated, a CT scan is recommended. Narrative 10/10/2024 2:44 PM CDT INDICATION: History of kidney stones. Comparison is made to prior study dated 05/10/2024. A 4 mm calculus is again suspected in the midpole region of the right kidney. A 2 mm calculus is suspected in both the upper and lower poles of the right kidney this time. A 2 mm calculus is also suspected in the left kidney. Lobular calcifications are again noted in the lower mid pelvis to the right of midline. The bowel gas pattern is unremarkable with note of a moderate to large amount of stool in the descending colon. Procedure Note Preston Baker MD - 10/10/2024 INDICATION: History of kidney stones. Comparison is made to prior study dated 05/10/2024. A 4 mm calculus is again suspected in the midpole region of the right kidney. A 2 mm calculus is suspected in both the upper and lower poles of the right kidney this time. A 2 mm calculus is also suspected in the left kidney. Lobular calcifications are again noted in the lower mid pelvis to the right of midline. The bowel gas pattern is unremarkable with note of a moderate to large amount of stool in the descending colon. IMPRESSION: Small bilateral renal calculi are suspected. If further assessment is indicated, a CT scan is recommended. us Sahil Correia MD DIAGNOSTIC IMAGING ORDERAB LES Final Result from Last 3 Months Insurance GENERIC PAYOR MEDICARE PART A AND B [facility]
--- OUTSIDE RECORDS SUMMARY | 2024-11-02 13:34 | XMS_ITS | Encounter Summary ---
Author Organization [facility] Address 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
--- OUTSIDE RECORDS SUMMARY | 2024-11-02 13:34 | XMS_ITS | Clinical Summary ---
Author Organization [facility] Address [address] [place] [address] Care Team Providers Care Sugar House Supervisor Name Role Phone Loyd Matteo MARY ANN Primary Care Provider [phone] Source Comments [facility],non-owned Affiliates and Associated Physician Practices is amultiple site organization consisting of ambulatory clinics and hospital sitesin [place], [place], [place] and [place]. This disclosure is being madepursuant to the Care Everywhere program and may not contain all information available regarding this patient. Last updated 18.[facility] Allergies Active Allergy Reactions Criticality Noted Date Comments Sulfamethoxazole W-Trimethoprim Unknown 09/18 Medications * Be aware that medications may not be up to date on this document. Alwaysverify current medications with the patient. triamterene-hy droCHLOROthiaz zulema (Dyazide) 37.5-25 MG capsule Take 1 (one) capsule by mouth once daily Active lisinopril (Prinivil; Zestril) 20 MG tablet Take 1 (one) tablet by mouth once daily Active simvastatin (Zocor) 40 MG tablet Take 1 (one) tablet by mouth at bedtime Active insulin lispro 100 UNIT/ML for insulin pump Inject subcutaneously as directed Active multivitamin daily tablet Take 1 (one) tablet by mouth daily with food Active Turmeric 5-1000 MG CAPS Activ e Melatonin 10 MG Active magnesium gluconate 500 (27 Mg) MG tablet Take 0.5 (one-half) tablet by mouth once daily Active Encounters Date Type Department Care Team Description 10/12/2024 10:00 AM CDT Office Visit [facility] - [address] [address] Tani Yi MD 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); Obesity (BMI 35.0-39.9 without comorbidity) 10/12/2024 Travel from Last 3 Months Social History Tobacco Use Types Packs/Day Years Used Date Smoking Tobacco: Never Assessed Sex and Gender Information Value Date Recorded Sex Assigned at Male 08/24/2024 1:40 PM 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 Legal Sex Male 5:58 AM 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 Gender Identity Male 08/24/2024 1:40 PM 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 Sexual Orientation Not on file Last Filed Vital Signs Vital Sign Reading Time Taken Comments Blood Pressure 129/74 10/12/2024 10:23 AM CDT Pulse 75 10/12/2024 10:23 AM CDT Temperature - - Respiratory Rate - - Oxygen Saturation 96% 10/12/2024 10: 23 AM CDT Inhaled Oxygen Concentration - - Weight 102.3 kg (225 lb 9.6 oz) 025 10:23 AM CDT Height 165.1 cm (5' 5 ) 10/12/2024 10:2 3 AM CDT Body Mass Index 37.54 10/12/2024 10:23 AM CDT Plan of Treatment Upcoming Encounters Date Type Department Care Team (Late st Contact Info) Description 11/18/2024 9:30 AM CDT Office Visit [facility] - [address] [id number] Justino Hess III, MD [address] [place] [address] [address] [place] [phone] Health Maintenance Due Date Last Done Comments COLOGUARD (AGES 45-75) - COL ON CA SCREENING [address] COLONOGRAPHY - COLON CA SCREENING 1955 FIT - COLON CA SCREENING 1955 FLEX SIG - COLON CA SCREENING 1955 MEDICARE AWV 12 MONTHS 1955 HEPATITIS C SCREENING 02/17/1972 DTAP/TDAP/TD VACCINES (1 - Tdap) 1973 PNEUMOCOCCAL VACCINE 50+ (1 of 2 - PCV) 1973 ZOSTER VACCINE (1 of 2) 02/22/2004 COVID-19 VACCINE (1 - 2023-2 5 season) 2024 DEPRESSION SCREENING 07/20/2024 SCREENING FOR DIABETES 10/12/2024 INFLUENZA VACCINE (Season Ended) 2025 05/25/2018, 05/24/2018, 05/04/2007 Respiratory Syncytial Virus (RSV) Vaccine Pt: or over 60 yrs (1 - 1-dose 75+ series) 2029 COLONOSCOPY - COLON CA SCREENING 08/29/2031 08/29/2021 Colorectal Cancer Screening 08/29/2031 HEPATITIS B VACCINE Aged Out No longe r eligible based on patient's age to complete this topic HIB VACCINE Aged Out No longer eligi ble based on patient's age to complete this topic HPV VACCINE Aged Out No longer eligi ble based on patient's age to complete this topic MENINGOCOCCAL (Group B) VACCINE SHARED DECISION-MAKING Aged Out No longer eligible based on patient's age to complete this topic MENINGOCOCCAL GROUPS A/C/Y/W VACCINE Aged Out No longer eligible b ased on patient's age to complete this topic Goals Goal Patient Goal Type Associated Problems Recent Progress Patient-Stated? Author Medication Management General No Lavern Torres, RN Insurance MEDICARE [facility] [place] [address] Care Teams Sugar House Supervisor Relationship Specialty Start Date End Date Matteo Harp DC [address] [place] [address] PCP - General Chiropractic 10/12/24
--- OUTSIDE RECORDS SUMMARY | 2024-11-02 13:34 | XMS_ITS | Encounter Summary ---
Author Organization [facility] Address [address] [place] [address] Phone Care Team Providers Care Orthotic/Prosthetic Practitioner Name Role Phone Alvin FITZPATRICK MD, Andrew Saucedo Unavailable [phone] Bob Matute MD Unavailable [phone] Aaliyah Clark OT Unavailable [phone] Matteo Harp MD Primary Care Provider [phone] Reason for Referral * Consultation (Routine) - Authorized Specialty Diagnoses / Procedures Referred By Contac t Referred To Contact Physical Therapy Diagnoses Nontraumatic complete tear of left rotator cuff Clayton Bradley MD [address] [place] [address] Phone: tel: fax: [facility] [address] [place] [address] [place] [address] Phone: tel: fax: Referral ID Status Reason Start Date Expiration Date Visits Requested Visits Authorized [id number] Authorized Evaluate and Treat 11/01/2024 12/01/2025 99 99 Question Answer Location provided for therapy services is: Patient requested/Patient preferred Please select the performing region: External Order [171] To loc/pos [facility] [place] [[id number]] Comments [facility] Clayton Bradley MD Shoulder and Elbow Service Date: 11/01/24 Patient Name: Edgar Cardona : 1955 Diagnosis: left shoulder medium-sized full-thickness cuff tear Physical Therapy Therapy Instructions: Special Instructions: focus on cuff flexibility and strengthening, scapular posture. Frequency & Duration: Therapist's discretion: Yes Clayton Bradley MD ATTENTION THERAPY PROVIDER- Please be sure to include the Patient's Name & Date of on All Correspondence with our office- For all PT reports that require a signature-please fax to [phone] For all other PT progress notes-please fax to [phone] SCHEDULING PHYSICAL THERAPY APPOINTMENTS: THIS IS YOUR THERAPY ORDER. BE SURE AND TAKE THIS WITH YOU TO YOUR THERAPY APPOINTMENT AND GIVE TO YOUR THERAPIST. WITHOUT THIS PAPER THE THERAPIST WILL NOT BE ABLE TO START YOUR THERAPY PROGRAM. Your Physical Therapy Provider may complete the pre-certification process on your behalf. If you need assistance from the Orthopedic Pre-Certifiction office, please call [phone] and a steamfitter supervisor will assist you. Workman's compensation patients: you must contact your disability case manager regarding where you are to go for your physical therapy. 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 Gender Identity Not on file Sexual Orientation Straight 03/09/2019 8: 26 AM CDT documented as of this encounter Ordered Prescriptions Prescription Sig Dispense Quantity Refills Last Filled Start Date End Date meloxicam (MOBIC) 15 mg tablet Take 1 tablet (15 mg total) by mouth daily 45 tablet 11/01/2024 12/16/2024 documented in this encounter Plan of Treatment Scheduled Referrals Name Type Priority Associated Diagnoses Order Schedule Ambulatory referral order to Physical Therapy - Outpatient Referral Routine Nontraumatic complete tear of left rotator cuff Expected: 11/02/2024 (Approximate), Expires: 11/01/2025 documented as of this encounter Visit Diagnoses Diagnosis Nontraumatic complete tear of left rotator cuff- Primary documented in this encounter Care Teams Orthotic/Prosthetic Practitioner Relationship Specialty Start Date End Date Matteo Harp MD [address] [place] [address] PCP - General Family Practice 09/02/24 Andrew Esquivel III, MD [address] [place] [address] Consulting Physician Rheumatology 11/11/17 Bob Matute MD [address] [place] [address] Referring Physician Endocrinology Diabetes & Metabolism 12/04/17 Aaliyah Clark OT [address] [address] Occupational Therapist Occupational Therapy 10/14/19 documented as of this encounter
--- OUTSIDE RECORDS SUMMARY | 2024-11-02 13:34 | XMS_ITS | Referral Summary ---
Author Organization [facility] al Address [address] [place] [address] Care Team Providers Care Neurosurgical Nurse Practitioner Name Role Phone Alvin FITZPATRICK MD, Andrew Saucedo Unavailable [phone] Bob Matute MD Unavailable [phone] Aaliyah Clark OT Unavailable Matteo Harp MD Primary Care Provider [phone] Encounters Date Type Department Care Team Description 11/01/2024 Orders Only [facility] Orthopaedic Surgery [address] [place] [address] 2nd Floor [address] [place] [address] Clayton Bradley MD Nontraumatic complete tear of left rotator cuff (Primary Dx) 10/31/2024 Telephone [facility] Orthopaedic Surgery [address] [place] [address] 2nd [address] [place] [address] Clayton Bradley MD 10/27/2024 11:40 AM CDT - 10/27/2024 11:59 PM CDT Hospital Encounter [facility] Radiology [address] [place] [address] Left shoulder pain, unspecified chronicity Discharge Disposition: Discharge to home or self care 10/26/2024 Orders Only [facility] Orthopaedic Surgery [facility] 12th [place] [address] [place] [address] Clayton Bradley MD Left shoulder pain, unspecified chronicity (Primary Dx) 10/26/2024 8:23 AM CDT - 10/26/2024 11:59 PM CDT Hospital Encounter [facility] [address] [place] [address] Clayton Bradley MD Left shoulder pain, unspecified chronicity Discharge Disposition: Discharge to home or self care 10/26/2024 8:45 AM CDT Office Visit [facility] Orthopaedic Surgery [address] [facility] 12th [place] [address] [place] [address] Clayton Bradley MD Left shoulder pain, unspecified chronicity (Primary Dx); Nontraumatic complete tear of left rotator cuff from Last 3 Months Allergies Active Allergy Reactions Criticality Noted Date Comments Chlorhexidine Itching,Other (See comments) High 08/06/2022 Major issues with this in his last surgery Sulfa (Sulfonamide Antibiotics) Unknown,Rash Medium 08/19/2021 Medications multivitamin capsuleIndicati ons:Vitamin Deficiency Prevention Take 1 capsule by mouth every morning Active diabetic supplies, miscellan. misc Dexcom device currently on FA but will be moved prior to day of surgery Active insulin lispro (HumaLOG) 100 unit/mL vial for injectionIndica tions:Secondary diabetes mellitus (HCC),Post-panc reatectomy diabetes (HCC) USE HUMALOG INSULIN PER INSULIN PUMP. MAXIMUM DAILY DOSE IS 100 UNITS. 90 mL 1 2 Active Additional Information Patient taking differently: USE [...] volving the immune mechanism, not elsewhere classified ([facility]) 06/08/2020 Assessment & Plan (06/08/2020 1:33 PM SPACE SYSTEMS OPERATIONS SUPERINTENDENT): Hx of thyroid antibodies. Check tsh. Chronic fatigue 06/08/2020 Assessment & Plan (06/08/2020 1:33 PM SPACE SYSTEMS OPERATIONS SUPERINTENDENT): Check tsh. Arthritis of carpometacarpal (CMC) joint of righ t thumb 05/03/2020 Overview (05/03/2020): Added automatically from request for surgery [id number] Arthritis of carpometacarpal (CMC) joint of left thumb 05/03/2020 Overview (05/29/2020): Added automatically from request for surgery [id number] Insulin pump titration 12/15/2019 Assessment & Plan [...] (12/05/2019): Added automatically from request for surgery [id number] Assessment & Plan (12/16/2019 1:32 PM CDT): S/P right total shoulder replacement yesterday. Post-operative stress may complicate glycemic management. Good glycemic management required to promote healing. Right foot pain 07/18/2019 Assessment & Plan (09/14/2019 7:27 AM SPACE SYSTEMS OPERATIONS SUPERINTENDENT): Was given referral for foot xray and mri but has not done it yet. Has had rt lateral mid foot pain and swelling x 2.5 months. No injury. Assessment & Plan (07/18/2019 12:41 PM SPACE SYSTEMS OPERATIONS SUPERINTENDENT): Will xray and Mri. Has had rt lateral mid foot pain and swelling x 2.5 months. No injury. DISH (diffuse idiopathic skeletal hyperostosis) 11/29/2018 Assessment & Plan (06/08/2020 7:27 AM SPACE SYSTEMS OPERATIONS SUPERINTENDENT): CXR in 11/2017 revealed DISH of the thoracic spine. Denies any back pain. Assessment & Plan (09/14/2019 7:26 AM SPACE SYSTEMS OPERATIONS SUPERINTENDENT): CXR in 11/2017 revealed DISH of the thoracic spine. Denies any back pain. 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 Rt [facility] 03/2019 Assessment & Plan (09/14/2019 12:29 PM SPACE SYSTEMS OPERATIONS SUPERINTENDENT): Images from the original note were not included. Mod cdai. Does not want to start humira at this time. Crystal lost his papers and pt is upset about that and at this time does not want to start a biologic. 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 Rt 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 Rt [facility] 03/2019 Assessment & Plan (07/22/2019 9:48 AM SPACE SYSTEMS OPERATIONS SUPERINTENDENT): Images from the original note were not [...] Rt hand US 03/2019 Assessment & Plan (04/20/2019 4:14 [...] current insulin pump settings: INSULIN PUMP MODEL: Medtronic Insulin pump with [...] today, please call Ekaterina Farfan NP at [phone]. If after hours, please contact the Diabetes Fellow at [phone]. Hypertension, benign 11/26/2017 Assessment & Plan (04/29/2019 1:31 PM CDT): Blood pressure 146/79. He has been monitoring blood pressures at home in forwarding them to his primary care physician for possible medication adjustments. Mixed hyperlipidemia 11/26/2017 Assessment & Plan (04/29/2019 1:31 PM CDT): Continue simvastatin. Tolerating without side effects. Chronic right shoulder pain 11/26/2017 Assessment & Plan (09/14/2019 7:23 AM SPACE SYSTEMS OPERATIONS SUPERINTENDENT): Extensive OA on xray,ortho recommended rt shoulder replacement, pt is thinking he might have it in November 2019. Assessment & Plan (08/18/2019 8:14 AM SPACE SYSTEMS OPERATIONS SUPERINTENDENT): Extensive OA on xray,ortho recommended rt shoulder replacement, pt is thinking he might have it in November 2019. Assessment & Plan (07/18/2019 12:40 PM SPACE SYSTEMS OPERATIONS SUPERINTENDENT): Extensive OA on xray,ortho recommended rt shoulder [...] 10/03/2015 Assessment & Plan (06/08/2020 7:28 AM SPACE SYSTEMS OPERATIONS SUPERINTENDENT): cxr neg 05/07 (except for DISH of T spine) Xrays showed enthesophytes left heel and rt heel allx to sulfa, avoid sulfasalazine Quant gold neg 11/2018 Advised to get shingrix, flu vaccine, prevnar 14, tdap and pneumovax on 07/18/19 visit. Avise 07/07---high thyroid antibodies and a slightly elevated + ULI Assessment & Plan (09/14/2019 7:23 AM SPACE SYSTEMS OPERATIONS SUPERINTENDENT): cxr neg 05/07 (except for DISH of T spine) Xrays showed enthesophytes left heel and rt heel allx to sulfa, avoid sulfasalazine Quant gold neg 11/2018 Advised to get shingrix, flu vaccine, prevnar 14, tdap and pneumovax on 07/18/19 visit. Assessment & Plan (08/18/2019 8:15 AM SPACE SYSTEMS OPERATIONS SUPERINTENDENT): cxr neg 05/07 (except for DISH of T spine) Xrays showed enthesophytes left heel and rt heel allx to sulfa, avoid sulfasalazine Quant gold neg 11/2018 Hep B and C neg 06/2019 Avise 06/2019---high thyroid antibodies and a slightly elevated + ULI. Advised to get shingrix, flu vaccine, prevnar 14, tdap and pneumovax on 07/18/19 visit. Assessment & Plan (07/18/2019 12:42 PM SPACE SYSTEMS OPERATIONS SUPERINTENDENT): cxr neg 05/07 (except for DISH of [...] bilateral heels. Allergic to sulfa, avoid ssz. snf current use of insulin 10/03/2015 Secondary diabetes mellitus 03/08/2015 Left lower quadrant pain 03/08/2015 Osteoarthritis of shoulder 09/19/2014 Adhesive capsulitis of shoulder 09/19/2014 Osteoarthritis of knee 09/01/2014 Diabetic hypoglycemia 05/06/2011 Surgical follow-up care 05/01/2009 BMI 37.0-37.9, adult 04/17/2006 Kidney stone Resolved Problems Problem Noted Date Diagnosed Date Resolved Date Abnormal thyroid blood test 12/09/2017 07/01/2021 Immunizations Immunization Administration Dates Next Due Influenza, Quadrivalent, Spl it, Preservative Free, Intramuscular 05/25/2018,05/24/2018 Influenza, Trivalent, Preservative Free, Intramu scular 05/04/2007 Tdap 01/20/2022 Social History Tobacco Use Types Packs/Day Years [...] on file Legal Sex Male 7:20 PM SPACE SYSTEMS OPERATIONS SUPERINTENDENT Gender Identity Not on file Sexual Orientation Straight 03/09/2019 8: 26 AM CDT Last Filed Vital Signs Vital Sign Reading [...] 10/26/2024 8:40 AM CDT Plan of Treatment Not on file Medical Devices Implanted Type Area Compliance And Control Analyst Device Identifier Shelf Expiration Date Model / Serial / Lot DJTUNES.COM [id number] Aequalis 29mm Reverse Long Post Shoulder Baseplate Glenoid Spencer - [id number] - [id number] Implanted:Qty: 1 on 12/15/2019 by Clayton Brdaley MD at [facility] Right: Shoulder [employer] [id number] 08/20/2022 [id number] / [id number] / The Daily [employer] [id number] Aequalis 36mm Center Reverse Ii Centered Sphere Glenoid Cocr 29mm - [id number] - [id number] Implanted:Qty: 1 on 12/15/2019 by Clayton Bradley MD at [facility] Right: Shoulder [employer] [id number] 01/12/2024 [id number] / [id number] / [employer]ES.[employer] [id number] Aequalis Reversed 4.5mm 41mm Compression Glenoid Screw Baseplate - [id number] Implanted:Qty: 1 on 12/15/2019 by Clayton Bradley MD at [facility] Right: Shoulder [employer] [id number] / / Torn[employer] [id number] Aequalis Reversed 4.5mm 23mm Compression Glenoid Screw Baseplate - [id number] Implanted:Qty: 1 on 12/15/2019 by Clayton Bradley MD at [facility] Right: Shoulder [employer] [id number] / / [employer] [id number] Aequalis 4.5mm 32mm Lock Multidirectional Self Tap Shoulder Screw Latex Free - [id number] Implanted:Qty: 1 on 12/15/2019 by Clayton Bradley MD at [facility] Right: Shoulder [employer] [id number] / / [employer] [id number] Aequalis 4.5mm 35mm Lock Multidirectional Self Tap Shoulder Screw Latex Free - [id number] Implanted:Qty: 1 on 12/15/2019 by Clayton Bradley MD at [facility] Right: Shoulder [employer] [id number] / / Daniel [employer] [id number] 12mm 130mm Shoulder Stem Humeral Trabecular Metal Tivanium - [id number] Implanted:Qty: 1 on 12/15/2019 by Clayton Bradley MD at [facility] Right: Shoulder [employer] [id number] 09/16/2029 [id number] / / [id number] [employer] [id number] 36mm Reverse Humerus 7d +6mm Offset Standard Liner Shoulder - [id number] Implanted:Qty: 1 on 12/15/2019 by Clayton Bradley MD at [facility] Right: Shoulder [employer] [id number] 06/18/2027 [id number] / / [id number] Arthrex Inc Ar-8978-Cp Internalbrace Kit Hand Wrist Set Implant Ligament Augmentation - [id number] Implanted:Qty: 1 on 06/17/2021 by Ray Doran MD at [facility] Left: Wrist [employer] 04/18/2026 AR-8978-CP / / [id number] [employer] Internalbrace Kit Hand Wrist Set Implant Ligament Augmentation Ar-8978-Cp - [id number] Implanted:Qty: 1 on 11/13/2022 by Ray Doran MD at [facility] Right: Wrist [employer] [id number] 04/18/2027 AR-8978-CP / / [id number] Explanted Type Area Compliance And Control Analyst Device Identifier Shelf Expiration Date Model / Serial / Lot [employer] [id number] Steinmann 3/32in 9in 2 Trocar Pin Fixation Nonsterile - [id number] Explanted:Qty: 1 on 12/15/2019 at [facility] Right: Shoulder [employer] [id number] S [...] retraction. Electronically signed by: Dennis Suarez M.D. [facility] 10/27/2024 12:07 PM CDT EXAMINATION: Left shoulder [...] retraction. Electronically signed by: Dennis Suarez M.D. us Clayton Bradley MD [facility] [place] PROCEDURES Final Re sult * XR [...] osteoarthritis. Electronically signed by: Jigar Nobles M.D. Result [facility] Clayton Bradley MD IMG XR PROCEDURES Final Re sult * POCT hemoglobin A1c (02/17/2022 9:01 AM CDT) Hemoglobin A1C, POC 6.4 Blood specimen (specimen) 02/17/2022 9:01 AM CDT Result [facility] Mian Kate MD POINT OF CARE TEST [...] LAB URINE ORDERABLES Final R esult [facility] [address] [place] [address] * Lipid panel (02/26/2021 9:15 AM CDT) Cholesterol 161 <200 mg/dL [facility] HDL 51 > OR = 40 mg/dL [facility] Triglycerides 78 <150 mg/dL [facility] LDL 93 mg/dL (calc) [facility] Comment: Reference range: <100 Desirable range <100 mg/dL for primary prevention; <70 mg/dL for patients with CHD or diabetic patients with > or = 2 CHD risk factors. LDL-C is now calculated using the Nagi-Heriberto calculation, which is a validated novel method providing better accuracy than the Friedewald equation in the estimation of LDL-C. Nagi SS et al. WILLIAN. 2013;310(19): 9762-3460 (http://education.Covagen/faq/YAV151) Chol/HDL ratio 3.2 <5.0 (calc) [facility] [...] FASTING: YES us Mian Kate MD LAB BLOOD ORDERABLES Final R esult [facility] [address] [place] [address] * (ABNORMAL) Basic metabolic panel (02/26/2021 9:15 AM CDT) Glucose 148(H) 65 - 99 mg/dL [facility] Comment: Fasting reference interval For someone without known diabetes, a glucose value >125 mg/dL indicates that they may have diabetes and this should be confirmed with a follow-up test. BUN 23 7 - 25 mg/dL [facility] Creatinine 1.01 0.70 - 1.25 mg/dL [facility] Comment: For patients >49 years of age, the reference limit for Creatinine is approximately 13% higher for people identified as -Colombian. eGFR NON-AFR. SOUTH AFRICAN 77 > OR = 60 mL/min/1 .73m2 [facility] EGFR 89 > OR = 60 mL/min/1 .73m2 [facility] BUN/creat ratio NOT APPLICABLE 6 - 22 (calc) [facility] Sodium 137 135 - 146 mmol/L [facility] Potassium, pl 4.1 3.5 - 5.3 mmol/L [facility] Chloride 101 98 - 110 mmol/L [facility] CO2 31 20 - 32 mmol/L [facility] Calcium 9.5 8.6 - 10.3 mg/dL [facility] Blood specimen (specimen) 02/26/2021 9:15 AM CDT 02/26/2021 9:20 AM CDT Narrative [facility] - 03/01/2021 8:08 PM CDT FASTING:YES PATIENT REFUSED SOME TESTING; PATIENT ENCOURAGED TO RETURN. FASTING: YES us Mian Kate MD LAB BLOOD ORDERABLES Final R esult [facility] [address] [facility] [place] [address] * Hepatitis panel, acute (11/26/2018 12:10 PM [...] with a HCV Nucleic Acid Amplification test (193811). 11/26/2018 12:1 0 PM CDT 11/26/2018 Narrative [facility] - 11/30/2018 7:06 PM CDT Performed at: [address] [place] [id number] Ward Helper: Charles Schmidt PhD, Phone: [phone] us Katja FALCON LAB MICROBIOLOGY - GENERAL ORDERABLES Final Result Performing Organization Address [facility] Co de Phone Number [facility] - 01 * CT Abdomen Pelvis WO Contrast (03/08/2015 2:43 PM CDT) Anatomical Region Laterality Modality Body N/A Computed Tomogra phy 03/08/2015 2:43 PM CDT Narrative 03/08/2015 3:25 PM CDT ANA ROQUE M.D. FINAL REPORT ACC# Date Time Exam [id number] Mar 08, 2015 14:43:[id number] Abd & Pelvis wo cont EXAMINATION: [...] ROQUE M.D. on Mar 08 2015 3:25P [id number] Procedure Note Provider, MD Dmitry - 11/09/2016 ANA ROQUE M.D. FINAL REPORT ACC# Date Time Exam [id number] Mar 08, 2015 14:43:[id number] Abd & Pelvis wo cont EXAMINATION: [...] ROQUE M.D. on Mar 08 2015 3:25P [id number] Historical Provider MD SHAFFER CT PROCEDURES Final R esult from Last 3 Months or Most Recently Relevant to Health Maintenance Insurance [place] MEDICARE [employer] [place] Advance Directives For more information, please contact: [phone] * Full Code (Latest Code Status on File) Date Activated Date Inactivated Comments 12/15/2019 7:18 PM 12/16/2019 7:18 PM Care Teams Neurosurgical Nurse Practitioner Relationship Specialty Start Date End Date Matteo Harp MD [address] [place] [address] PCP - General Family Practice 09/02/24 Andrew Velazquez III, MD [address] [facility] [address] [place] [address] Consulting Physician Rheumatology 11/11/17 Bob Matute MD [address] [place] [address] Referring Physician Endocrinology Diabetes & Metabolism 12/04/17 Aaliyah Clark, JESSICA [address] [address] Occupational Therapist Occupational Therapy 10/14/19
== END 2024-11-02 12:31 | disposition home or self-care (01) ==
PROVIDERS: PCP Family Medicine; Visit Provider Nurse Practitioner Family
DX: R05.1 Acute cough (principal); M79.672 Pain in left foot
CPT/HCPCS: 71046; 73620

== ENCOUNTER 2025-02-13 09:15 | Outpatient (CLI) | payer MEDICARE, OTHER, SELFPAY ==
--- NOTE | ~2025-02-13 | XR_ITS ---
XR hip RT min 2V 02/13/2025 09:38 Indication: Right hip pain Procedure: 2 views right hip Comparison: No prior studies for comparison. Findings: Mild osteoarthritis of the right hip. No fracture, subluxation or dislocation. No soft tiss ue abnormality. No foreign bodies. Impression: 1: Mild osteoarthritis of the right hip. Reviewed, dictated and finalized at location B. Impression: 1: Mild osteoarthritis of the right hip.
--- OUTSIDE RECORDS SUMMARY | 2025-02-13 09:38 | XMS_ITS | Clinical Summary ---
Author Organization [facility] Address [address] [place] [address] Care Team Providers Care Locum Tenens Name Role Phone Unavailable Primary Care Provider Unavailabl e Encounters Date Type Department Care Team Description 12/08/2024 External Device Data [facility] ABSTRACTION Provider, Abstract 12/08/2024 External Device Data [facility] ABSTRACTION Provider, Abstract 12/07/2024 External Device Data [facility] ABSTRACTION Provider, Abstract from Last 3 Months Social History Tobacco Use Types Packs/Day Years Used Date Smoking Tobacco: Never Assessed Sex and Gender Information Value Date Recorded Sex Assigned at Not on file Legal Sex Male 7:17 PM 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
--- OUTSIDE RECORDS SUMMARY | 2025-02-13 09:38 | XMS_ITS | Referral Summary ---
Author Organization 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) 06/08/2020 Assessment & Plan (06/08/2020 1:33 PM HUMAN RESOURCE ANALYST): Hx of thyroid antibodies. Check tsh. Chronic fatigue 06/08/2020 Assessment & Plan (06/08/2020 1:33 PM HUMAN RESOURCE ANALYST): Check tsh. Arthritis of carpometacarpal (CMC) joint of righ t thumb 05/03/2020 Overview (05/03/2020): Added automatically from request for surgery [id number] Arthritis of carpometacarpal (CMC) joint of left thumb 05/03/2020 Overview (05/29/2020): Added automatically from request for surgery [id number] Insulin pump titration 12/15/2019 Assessment & Plan [...] (12/05/2019): Added automatically from request for surgery [id number] Assessment & Plan (12/16/2019 1:32 PM CDT): S/P right total shoulder replacement yesterday. Post-operative stress may complicate glycemic management. Good glycemic management required to promote healing. Right foot pain 07/18/2019 Assessment & Plan (09/14/2019 7:27 AM HUMAN RESOURCE ANALYST): Was given referral for foot xray and mri but has not done it yet. Has had rt lateral mid foot pain and swelling x 2.5 months. No injury. Assessment & Plan (07/18/2019 12:41 PM HUMAN RESOURCE ANALYST): Will xray and Mri. Has had rt lateral mid foot pain and swelling x 2.5 months. No injury. DISH (diffuse idiopathic skeletal hyperostosis) 11/29/2018 Assessment & Plan (06/08/2020 7:27 AM HUMAN RESOURCE ANALYST): CXR in 11/2017 revealed DISH of the thoracic spine. Denies any back pain. Assessment & Plan (09/14/2019 7:26 AM HUMAN RESOURCE ANALYST): CXR in 11/2017 revealed DISH of the thoracic spine. Denies any back pain. Assessment & Plan (08/18/2019 8:14 AM HUMAN RESOURCE ANALYST): CXR in 11/2017 revealed DISH of the [...] 04/29/2018 Assessment & Plan (06/08/2020 1:32 PM HUMAN RESOURCE ANALYST): Images from the original note were not [...] 03/2019 Assessment & Plan (09/14/2019 12:29 PM HUMAN RESOURCE ANALYST): Images from the original note were not included. Mod cdai. Does not want to start humira at this time. [place] lost his papers and pt is upset about that and at this time does not want to start a biologic. He is going to [facility] to be with his son in [...] 03/2019 Assessment & Plan (08/19/2019 12:16 PM HUMAN RESOURCE ANALYST): Images from the original note were not [...] Rt hand US 03/2019 Assessment & Plan (07/22/2019 9:48 AM HUMAN RESOURCE ANALYST): Images from the original note were not [...] today, please call Ekaterina Farfan NP at [phone]. If after hours, please contact the Diabetes Fellow at [phone]. Hypertension, benign 11/26/2017 Assessment & Plan (04/29/2019 1:31 PM CDT): Blood pressure 146/79. He has been monitoring blood pressures at home in forwarding them to his primary care physician for possible medication adjustments. Mixed hyperlipidemia 11/26/2017 Assessment & Plan (04/29/2019 1:31 PM CDT): Continue simvastatin. Tolerating without side effects. Chronic right shoulder pain 11/26/2017 Assessment & Plan (09/14/2019 7:23 AM HUMAN RESOURCE ANALYST): Extensive OA on xray,ortho recommended rt shoulder replacement, pt is thinking he might have it in November 2019. Assessment & Plan (08/18/2019 8:14 AM HUMAN RESOURCE ANALYST): Extensive OA on xray,ortho recommended rt shoulder replacement, pt is thinking he might have it in November 2019. Assessment & Plan (07/18/2019 12:40 PM HUMAN RESOURCE ANALYST): Extensive OA on xray,ortho recommended rt shoulder [...] 10/03/2015 Assessment & Plan (06/08/2020 7:28 AM HUMAN RESOURCE ANALYST): cxr neg 05/07 (except for DISH of T spine) Xrays showed enthesophytes left heel and rt heel allx to sulfa, avoid sulfasalazine Quant gold neg 11/2018 Advised to get shingrix, flu vaccine, prevnar 14, tdap and pneumovax on 07/18/19 visit. Avise 07/07---high thyroid antibodies and a slightly elevated + ULI Assessment & Plan (09/14/2019 7:23 AM HUMAN RESOURCE ANALYST): cxr neg 05/07 (except for DISH of T spine) Xrays showed enthesophytes left heel and rt heel allx to sulfa, avoid sulfasalazine Quant gold neg 11/2018 Advised to get shingrix, flu vaccine, prevnar 14, tdap and pneumovax on 07/18/19 visit. Assessment & Plan (08/18/2019 8:15 AM HUMAN RESOURCE ANALYST): cxr neg 05/07 (except for DISH of T spine) Xrays showed enthesophytes left heel and rt heel allx to sulfa, avoid sulfasalazine Quant gold neg 11/2018 Hep B and C neg 06/2019 Avise 06/2019---high thyroid antibodies and a slightly elevated + ULI. Advised to get shingrix, flu vaccine, prevnar 14, tdap and pneumovax on 07/18/19 visit. Assessment & Plan (07/18/2019 12:42 PM HUMAN RESOURCE ANALYST): cxr neg 05/07 (except for DISH of [...] bilateral heels. Allergic to sulfa, avoid ssz. 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 10/03/2015 Secondary diabetes [...] on file Legal Sex Male 7:20 PM HUMAN RESOURCE ANALYST Gender Identity Not on file Sexual Orientation [...] 8:40 AM CDT Height 167.6 cm (5' 6) 10/26/2024 8:40 AM CDT Body Mass Index 35.02 10/26/2024 8:40 AM CDT Plan of Treatment Not on file Medical Devices Implanted Type Area Eligibility Services Representative Device Identifier Shelf Expiration Date Model / Serial / Lot [employer] [id number] Aequalis 29mm Reverse Long Post Shoulder Baseplate Glenoid Spencer - [id number] - [id number] Implanted:Qty: 1 on 12/15/2019 by Clayton Bradley MD at [facility] Right: Shoulder [employer] [id number] 08/20/2022 [id number] / [id number] / Torn[employer] [id number] Aequalis 36mm Center Reverse Ii Centered Sphere Glenoid Cocr 29mm - [id number] - [id number] Implanted:Qty: 1 on 12/15/2019 by Clayton Bradley MD at [facility] Right: Shoulder Mar[employer] Inc [id number] 01/12/2024 [id number] / [id number] / [employer] [id number] Aequalis Reversed 4.5mm 41mm Compression Glenoid Screw Baseplate - [id number] Implanted:Qty: 1 on 12/15/2019 by Clayton Bradley MD at [facility] Right: Shoulder Vennsa [employer] [id number] / / [employer] [id number] Aequalis Reversed 4.5mm 23mm Compression Glenoid Screw Baseplate - [id number] Implanted:Qty: 1 on 12/15/2019 by Clayton Bradley MD at [facility] Right: Shoulder [employer]nsa [employer] Inc [id number] / / Tornier Inc [id number] Aequalis 4.5mm 32mm Lock Multidirectional Self Tap Shoulder Screw Latex Free - [id number] Implanted:Qty: 1 on 12/15/2019 by Clayton Bradley MD at [facility] Right: Shoulder [employer] [id number] / / [employer] [id number] Aequalis 4.5mm 35mm Lock Multidirectional Self Tap Shoulder Screw Latex Free - [id number] Implanted:Qty: 1 on 12/15/2019 by Clayton Bradley MD at [facility] Right: Shoulder [employer] [id number] / / Daniel [employer]omet Inc [id number] 12mm 130mm Shoulder Stem Humeral Trabecular Metal Tivanium - [id number] Implanted:Qty: 1 on 12/15/2019 by Clayton Bradley MD at [facility] Right: Shoulder [employer] [id number] 09/16/2029 [id number] / / [id number] [employer] Inc [id number] 36mm Reverse Humerus 7d +6mm Offset Standard Liner Shoulder - [id number] Implanted:Qty: 1 on 12/15/2019 by Clayton Bradley MD at [facility] Right: Shoulder [employer] Inc [id number] 06/18/2027 [id number] / / [id number] Arthrex Inc Ar-8978-Cp Internalbrace Kit Hand Wrist Set Implant Ligament Augmentation - [id number] Implanted:Qty: 1 on 06/17/2021 by Ray Doran MD at [facility] Left: Wrist Arth[employer] Inc 04/18/2026 AR-8978-CP / / [id number] Arthrex Inc Internalbrace Kit Hand Wrist Set Implant Ligament Augmentation Ar-8978-Cp - [id number] Implanted:Qty: 1 on 11/13/2022 by Ray Doran MD at [facility] Right: Wrist [employer] Inc [id number] 04/18/2027 AR-8978-CP / / [id number] Explanted Type Area Eligibility Services Representative Device Identifier Shelf Expiration Date Model / Serial / Lot [employer] [id number] Steinmann 3/32in 9in 2 Trocar Pin Fixation Nonsterile - [id number] Explanted:Qty: 1 on 12/15/2019 at [facility] Right: Shoulder [employer] [id number] S / / Procedures Procedure Name Priority Date/Time Associated Diagnosis Comments POCT HEMOGLOBIN A1C Routine 02/17/2022 9 :01 AM CDT Diabetes mellitus associated with pancreatic [...] Recently Relevant to Health Maintenance Results * POCT hemoglobin A1c (02/17/2022 9:01 AM [...] RETURN. FASTING: YES Mian Kate MD LAB URINE ORDERABLES Final R esult [facility] [address] [place] [address] * Lipid panel (02/26/2021 9:15 AM CDT) [...] factors. LDL-C is now calculated using the Foster calculation, which is a validated novel method providing better accuracy than the Friedewald equation in the estimation of LDL-C. Nagi SS et al. WILLIAN. 2013;310(19): 3452-6036 (http://education.SignalSet.Mesitis/faq/YTE537) Chol/HDL ratio 3.2 <5.0 (calc) [facility] [...] BLOOD ORDERABLES Final R esult [facility] [address] [place] [address] * (ABNORMAL) Basic metabolic panel (02/26/2021 9:15 AM CDT) Glucose 148(H) 65 - 99 mg/dL [facility] Comment: Fasting reference interval For someone without known diabetes, a glucose value >125 mg/dL indicates that they may have diabetes and this should be confirmed with a follow-up test. BUN 23 7 - 25 mg/dL [facility] Creatinine 1.01 0.70 - 1.25 mg/dL [facility] Comment: For patients >49 years of age, the reference limit for Creatinine is approximately 13% higher for people identified as -Polish. eGFR NON-AFR. KENYAN 77 > OR = 60 mL/min/1 .73m2 [facility] EGFR 89 > OR = 60 mL/min/1 .73m2 [facility] BUN/creat ratio NOT APPLICABLE 6 - 22 (calc) [facility] Sodium 137 135 - 146 mmol/L [facility] Potassium, pl 4.1 3.5 - 5.3 mmol/L [facility] Chloride 101 98 - 110 mmol/L [facility] CO2 31 20 - 32 mmol/L [facility] Calcium 9.5 8.6 - 10.3 mg/dL [facility] Blood specimen (specimen) 02/26/2021 9:15 AM CDT 02/26/2021 9:20 AM CDT Narrative [facility] - 03/01/2021 8:08 PM CDT FASTING:YES PATIENT REFUSED SOME TESTING; PATIENT ENCOURAGED TO RETURN. FASTING: YES us Mian Kate MD LAB BLOOD ORDERABLES Final R esult [facility] [address] [facility] [place] [address] * Hepatitis panel, acute (11/26/2018 12:10 PM [...] with a HCV Nucleic Acid Amplification test ([id number]). 11/26/2018 12:1 0 PM CDT 11/26/2018 Narrative [facility] - 11/30/2018 7:06 PM CDT Performed at: 01 - [facility] [address] [id number] Team Assembly Line Machine Operator: Charles Schmidt PhD, Phone: [phone] us Katja FALCON LAB MICROBIOLOGY - GENERAL ORDERABLES Final Result [facility] - 01 * CT Abdomen Pelvis WO Contrast (03/08/2015 2:43 PM CDT) Anatomical Region Laterality Modality Body N/A Computed Tomogra phy 03/08/2015 2:43 PM CDT Narrative 03/08/2015 3:25 PM CDT ANA ROQUE M.D. FINAL REPORT ACC# Date Time Exam [id number] Mar 08, 2015 14:43:[id number] Abd & Pelvis wo cont EXAMINATION: [...] ROQUE M.D. on Mar 08 2015 3:25P [id number] Procedure Note Provider, MD Dmitry - 11/09/2016 ANA ROQUE M.D. FINAL REPORT ACC# Date Time Exam [id number] Mar 08, 2015 14:43:[id number] Abd & Pelvis wo cont EXAMINATION: [...] This document has been electronically signed by: NAA ROQUE M.D. on Mar 08 2015 3:25P [id number] us Historical Provider MD SHAFFER CT PROCEDURES Final R esult from Last 3 Months or Most Recently Relevant to Health Maintenance Insurance MEDICARE [facility] MEDICARE [facility] MEDICARE [place] MEDICARE [place] Advance Directives For more information, please contact: [phone] * Full Code (Latest Code Status on File) Date Activated Date Inactivated Comments 12/15/2019 7:18 PM 12/16/2019 7:18 PM Care Teams Receiver Setter Relationship Specialty Start Date End Date Matteo Harp MD [address] [place] [address] PCP - General Family Practice 09/02/24 Andrew Velazquez III, MD [address] [place] [address] Consulting Physician Rheumatology 11/11/17 Bob Matute MD [address] [place] [address] Referring Physician Endocrinology Diabetes & Metabolism 12/04/17 Aaliyah Clark OT [address] [facility] [address] [place] [address] Occupational Therapist Occupational Therapy 10/14/19
--- OUTSIDE RECORDS SUMMARY | 2025-02-13 09:38 | XMS_ITS | Clinical Summary ---
Author Organization [facility] Address [address] [place] [address] Care Team Providers Care Director Speech Language Name Role Phone Loyd Matteo MARY ANN Primary Care Provider Source Comments [facility],non-owned Affiliates and Associated Physician Practices is amultiple site organization consisting of ambulatory clinics and hospital sitesin [place], [place]. This disclosure is being madepursuant to the Care Everywhere program and may not contain all information available regarding this patient. Last updated 18.[facility] Allergies Active Allergy Reactions Criticality Noted Date Comments Chlorhexidine Itching,Other High 08/06/2022 Major issues with this in his last surgery Sulfa Drugs Rash,Unknown Medium 08/19/2021 Sulfamethoxazole W-Trimethoprim Unknown 10/12/2024 Medications * Be aware that medications may [...] Active Turmeric 5-1000 MG CAPS Activ e magnesium gluconate 500 (27 Mg) MG tablet Take 0.5 (one-half) tablet by mouth once daily Active [place]-3 Fatty Acids (fish oil) 500 MG capsule Take by mouth 2 times daily Active montelukast (Singulair) 10 MG tablet Take 1 (one) tablet by mouth once daily 5 Active Insulin Degludec FlexTouch 100 UNIT/ML SOPN ADMINISTER 40 UNITS UNDER THE SKIN DAILY NEEDED FOR INSULIN PUMP MALFUNCTION 5 Active fluticasone propionate (Flonase) 50 MCG/ACT nasal spray SHAKE LIQUID AND USE 2 SPRAYS IN EACH NOSTRIL DAILY 5 Active albuterol HFA (Proventil; Ventolin; Proair) 108 (90 Base) MCG/ACT inhaler INHALE 2 PUFFS BY MOUTH EVERY 4-6 HOURS NEEDED SHORTNESS OF BREATH OR WHEEZING 4 Active buPROPion XL 24hr (Wellbutrin-XL ) 150 MG tabletIndicati ons:Obesity (BMI 35.0-39.9 without comorbidity) Take 1 (one) tablet by mouth once daily for 7 days 7 tablet 5 Active buPROPion XL 24hr (Wellbutrin-XL ) 300 MG tabletIndicati ons:Obesity (BMI 35.0-39.9 without comorbidity) Take 1 (one) tablet by mouth once daily Start after you finish the 150mg prescription 30 tablet 5 5 Active naltrexone (Revia) 50 MG tabletIndicati ons:Obesity (BMI 35.0-39.9 without comorbidity) Take 0.5 (one-half) tablet by mouth once daily 45 tablet 2 5 Active Active Problems No known active problems Encounters Date Type Department Care Team Description 11/18/2024 9:30 AM CDT Office Visit [facility] - [address] [address] Justino Hess III, MD Obesity (BMI 35.0-39.9 without comorbidity) (Primary Dx); Metabolic syndrome 11/18/2024 Travel from Last 3 Months Social History Tobacco Use Types Packs/Day Years Used Date Smoking Tobacco: Never Smokeless Tobacco: Never Tobacco Cessation:Counseling Given: Not Answered Alcohol Use Standard Drinks/Week Comments Yes 0 (1 standard drink = 0.6 oz pur e alcohol) 1 beer/mth Sex and Gender Information Value Date Recorded Sex Assigned at Male 08/24/2024 1:40 PM 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 Legal Sex Male 5:58 AM 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 Gender Identity Male 08/24/2024 1:40 PM 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 Sexual Orientation Not on file Last Filed Vital Signs Vital Sign Reading Time Taken Comments Blood Pressure 127/69 11/18/2024 9:53 AM CDT Pulse 83 11/18/2024 9:53 AM CDT Temperature 36.8 C (98.3 F) 11/18/2024 9:53 AM CDT Respiratory Rate - - Oxygen Saturation 97% 11/18/2024 9:53 AM CDT Inhaled Oxygen Concentration - - Weight 101.6 kg (224 lb) 11/18/2024 9:53 AM CDT Height 167.6 cm (5' 6) 11/18/2024 9:53 AM CDT Body Mass Index 36.15 11/18/2024 9:53 AM CDT Plan of Treatment Health Maintenance Due Date Last Done Comments COLOGUARD (AGES 45-75) - COL ON CA SCREENING [address] CT COLONOGRAPHY - COLON CA SCREENING [...] 2024 DEPRESSION SCREENING 07/20/2024 SCREENING FOR DIABETES 02/17/2025 02/17/2022 INFLUENZA VACCINE (#1) 2025 8, 05/24/2018, 05/04/2007 Respiratory Syncytial Virus (RSV) Vaccine Pt: or over 60 yrs (1 - 1-dose 75+ series) 2029 COLON MONITORING 08/29/2031 08/29/2021 COLONOSCOPY - COLON CA SCREENING 08/29/2031 08/29/2021 [...] Recent Progress Patient-Stated? Author Medication Management General On track( 025 10:00 AM CDT) Lavern Delacruz RN Note: Expected end date: ongoing Interventions: Take all medications as prescribed Let your doctor know right away about any changes in your medications Make sure to request a refill of your medication at least one week prior to your last dose Insurance MEDICARE [facility] [place] [address] Care Teams Director Speech Language Relationship Specialty Start Date End Date Matteo Harp DC [address] [place] [address] [place] [address] PCP - General Chiropractic 10/12/24
--- OUTSIDE RECORDS SUMMARY | 2025-02-13 09:38 | XMS_ITS | Data Portability ---
Author Organization [facility] [place] - DME Address [address] [place] [address] Care Team Providers Care Fork Operator Name Role Phone YOLA KWONG Primary Care Provider Assessment No assessment recorded. Plan of Treatment Reminders Order Date Submit Date Provider Last Modified By Organization Details Last Modified Time Details Appointments None record ed. Lab None record ed. Referral None record ed. Procedures None record ed. Surgeries None record ed. Imaging None record ed. Medication Orders None record ed. Patient TargetsNo targets recorded. Patient Instructions Encounter Date Encounter Id Patient Instructions Last Modified By Organization Details Last Modified Time 08/19/2017 [id number] Discuss diagnosi s, prognosis, treatment options and alternatives for Achilles insertional tendinitis and Achilles bursitis. Discuss activity modification with avoidance of impact activities such as running or jumping that put stress on the Achilles, new footwear, stretching exercises and other physical therapy to change tendon mechanics and reduce tendon stress with improved lower extremity function while relaxing the Achilles; corticosteroid injections, oral steroids , NSAIDs to temporarily reduce inflammation; strapping and taping, OTC arch supports or custom functional foot orthoses to change foot function and reduce pressure on the heel; PRP, amniotic or stem cell injections, and Bursectomy with tendon debridement and repair. I discussed conservative care options usually decreases symptoms 80-90% within 3 months. Surgery is often necessary when the bone changes cause pressure and pain, especially in shoes. He has been bothered x 11 months but has not had anti-inflammatory meds (other than topical) I reviewed his previous chart noted from other doctors, radiography showing [place] Recommended diagnostic ultrasound to assess the tendon thickness, for rupture or other abnormality or soft tissue mass or osteophyte impingement. For the retrocalcaneal bursitis, I discussed steroid injection to reduce inflammation and relieve the acute pain. Risks of oral meds and injection were discussed including GI issues, allergic reaction, steroid issues and tendon rupture risk. CAM boot dispensed and fitted for tendon immobilization, both post injection and to reduce the tendinopathy at the insertion. 40 minute visit today of which 30 min was devoted to the discussion, counseling and coordinating the care and treatment program for the Achilles tendinopathy and 10 minutes devoted to the bursitis discussion and treatment. [email or web address] Not available 08/19/2017 11:07:54 09/02/2017 [id number] Slowly increase activities. Start Achilles stretches. D/C the CAM boot. Return if any flare. [email or web address] Not available 09/02/2017 12:41:55 02/18/2018 [id number] As the NSAID has not helped, I recommended a cortisone injection. This is acute, only 1 week so I think the injection is a good alternative. As before, the risk of tendon rupture are present, so dispensed Web Brace with stays applied to stabilize and protect. He is planning on walking at the [facility] tournament on Thursday. Will rest it if sore. [email or web address] Not available 02/18/2018 14:20:39 03/09/2018 [id number] Discuss options. Unmasked the Achilles as the TP calmed down Reinject the Achilles and CAM boot to protect x 2 weeks. Check 2 weeks if not resolved. Discuss RA may be playing a role in this with multiple tendons and recurrence. [email or web address] Not available 03/09/2018 10:21:44 Reason for Referral None Reported. Procedures Surgical History Date Name Laterality Status Provider Name and Address Organization Details Recorded Time 03/09/20 18 [id number] Sheath/Lig/PF Inj SK completed Angel Colon DPM [address] [place], [address], [employer] [facility] 03/09/2018 10:19:11 03/09/20 18 [id number] ultrasound anatomic specific right completed Angel Colon DPM [address] [place], [address], [facility] 03/09/2018 10:17:45 03/09/20 18 [id number] Pneumatic Walking Boot Dispensing completed Angel Colon DPM [address] [place], [address], [facility] 03/09/2018 10:19:53 02/19/20 18 [id number] Sheath/Lig/PF Inj SK completed Angel Colon YANEVivien [address] [place], [address], [facility] 02/18/2018 14:17:13 09/02/19 18 43048 ultrasound anatomic specific completed Angel ColonYANEVivien [address] [place], [address], [facility] 09/02/2017 12:40:46 08/19/19 18 92204 ultrasound complete Rt completed Angel ColonYANEVivien [address] [place], [address], [facility] 08/19/2017 10:59:47 08/19/19 18 15264 Intermd Jnt/Bursa w/ ultrasound guidance completed Angel ColonYANEVivien [address] [place], [address], [facility] 08/19/2017 11:00:51 08/19/19 18 L4361 Pneumatic Walking Boot Dispensing completed Angel ColonYANEVivien [address] [place], [address], [facility] 08/19/2017 11:02:49 Gallbladder completed [facility] 08/19/2017 10:01:23 Other completed [facility] 08/19/2017 10:01:31 Knee Replacement completed [facility] 08/19/2017 10:01:45 Other completed [facility] 08/19/2017 10:02:08 Imaging Results None recorded. Procedure Notes None recorded. Medical Equipment None Reported. Allergies Allergen ID Allergen Name Allergen Category Reaction Reaction Severity Criticality Documentation Date Start Date Code Code System Note Provider Name and Address Organization Details Recorded Time 65576 Substance with sulfonami de structure and antibacte rial mechanism of action (substanc e) medicatio n Not available Not available Not available 08/19/2017 97801 [id number] [place], [place] - [facility] 8 09:58:57 Medications Name Sig Start Date Stop Date Status Note LastModified by Organization Details LastModified Time amoxicillin 500 mg capsule active Not Available Not Available Not Available hydrocodone 5 mg-acetaminop hen 325 mg tablet active Not Available Not Available Not Available meloxicam 15 mg tablet active Not Available Not Available No t Available quinapril 40 mg tablet active Not Available Not Available No t Available simvastatin 40 mg tablet active Not Available Not Available Not Available tamsulosin 0.4 mg capsule active Not Available Not Available Not Available OneTouch Ultra Test strips active Not Available Not Available Not Available Novolog U-100 Insulin aspart 100 unit/mL subcutaneous solution active Not Available Not Available Not Available ondansetron 4 mg disintegratin g tablet active Not Available Not Available Not Available Novolog FlexPen U-100 Insulin aspart 100 unit/mL (3 mL) subcutaneous active Not Available Not Available Not Available aspirin active Not Available Not Avail able Not Available BD Ultra-Fine Vero Pen Needle 32 gauge x active Not Available Not Availabl e Not Available Vimovo 500 mg-20 mg tablet,immedi ate and delay release active Not Available Not Available Not Available Belviq 10 mg tablet active Not Available Not Available Not Available Pennsaid 20 mg/gram/actua tion (2 %) topical soln in metered-dose pump APPLY TWO PUMPS TOPICALLY TO AFFECTED AREAS TWICE A DAY NEEDED FOR PAIN AND SWELLING active Not Available Not Available No t Available Basaglar KwikPen U-100 Insulin 100 unit/mL (3 mL) subcutaneous active Not Available Not Available Not Available OneTouch Ultra Blue Test Strip active Not Available Not Available N ot Available Dexcom G6 Sensor device active Not Available Not Availabl e Not Available Dexcom G6 Color Worker active Not Available Not Available Not Available Dexcom G6 Transmitter device active Not Available Not Available Not Available Vitals Date Recorded Body height Body mass index (BMI) Body weight Provider Name and Address Organization Details Last Updated DateTime 08/19/2017 167.64 cm 35.3 kg/m2 49915.73 g vijaya diop [place] - [facility] 08/19/2017 09:59:26 Date Recorded Body height Provider Name an d Address Organization Details Last Updated DateTime 08/19/2017 167.64 cm arya Chapa [place] - [facility] 08/19/2017 10:01:15 Date Recorded Body height Provider Name an d Address Organization Details Last Updated DateTime 09/02/2017 167.64 cm arya Chapa [place] [facility] 09/02/2017 12:27:38 Date Recorded Body height Provider Name an d Address Organization Details Last Updated DateTime 02/18/2018 167.64 cm arya Chapa [place] [facility] 02/18/2018 14:01:20 Date Recorded Body height Provider Name an d Address Organization Details Last Updated DateTime 03/09/2018 167.64 cm arya Chapa [place] [facility] 03/09/2018 09:40:18 Social History Question Answer Notes LastModified by Organizat ion Details LastModified Time Tobacco Smoking Status Never Smoker vijaya diop [facility], [place] - [facility] 08/19/2017 09:59:44 Size Of Shoes 8 Inform ation not available 08/19/2017 What Was The Date Of Your Most Recent Tobacco Screening? 03/09/2018 Information n ot available 02/09/2019 Sex: Unknown Functional Status Question Answer Note LastModified by Organizat ion Details LastModified Time What is your level of alcohol consumption? 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 Heavy Information not available 08/19/2017 Mental Status None recorded. Family History Relationship Description Onset Age of this Age Resolved Age Notes LastModified by Organization Details LastModified Time Mother Arthritis [email or web address] Not available 08/19/2017 09:59:36 Medical History Condition Response Tuberculosis or TB N Heart Problems N Ulcers on Legs or Feet N Coronary Artery Disease N HIV or AIDS N Seizure Disorder N Gout N High Blood Pressure Y Clot in Lung or Pulmonary Embolism N Menopause N Lung Condition N Phlebitis or Venous Blood Clot N Migraines N Depression N Pacemaker N Anemia N Back Pain N Neurologic Disease N Sciatica N Heart Attack ([place]) N Diabetes Y Urinary Tract Infections N Anxiety Disorder N Bleeding Disorder N Arthritis N Abuse of Alcohol or Drugs N Back injury N Ear Problems N Cancer N Dementia N Eye Problems N Stroke N Stomach Problems N Peripheral Vascular Disease N Sinus Conditions N Broken Bone N Thyroid Disorder N High Cholesterol N Hepatitis N Liver Disease N Heart Disease N Rheumatoid Arthritis N Rash N Osteoporosis N Kidney Disease N Past Encounters Encounter ID Performer Location Encounter Start Date Encounter Closed Date Diagnosis/Indication Diagnosis SNOMED-CT Code Diagnosis ICD10 Code Diagnosis Note [id number] KEYANNA Watkins [address] [place] [address] 08/19/2017 09:57:23 08/19/2017 10:57:56 Achilles bursitis 774753928 M76.61 Posterior calcaneal exostosis 563022170 M89.8X7 Pain in right foot 75341 87786 15475 M79.671 [id number] KEYANNA Watkins [address] [place] [address] 09/02/2017 12:25:24 09/02/2017 12:37:38 Achilles bursitis 734486745 M76.61 [id number] YANE Watkins [facility] [address] [place] [address] 02/18/2018 13:56:28 02/18/2018 14:16:13 Tibialis posterior tendinitis 171438682 M76.829 Rheumatoid arthritis 698 36242 M06.9 Pain in right foot 67266 96580 16395 M79.671 [id number] YANE Watkins [facility] [address] [place] [address] 03/09/2018 09:31:50 03/09/2018 10:11:47 Achilles tendinitis 84486664 M76.61 Tibialis p osterior tendinitis 563676843 M76.821 Pain in right foot 41412 33733 46037 M79.671 Health Concerns Section Related Observation LastModified by Organization Detai ls LastModified Time None Recorded Concern Status LastModified by Organization Details LastModified Time None Recorded Advance Directives Directive None Recorded Payers Insurance Date Sequence Insurance Name Policy Number Policy Gonzalez Covered Member ID Gonzalez Member ID Guarantor Name 03/23/2018 1 [facility] [id number] Edgar Cardona [id number] Edgar Cardona
--- OUTSIDE RECORDS SUMMARY | 2025-02-13 09:38 | XMS_ITS | Clinical Summary ---
Author Organization [facility] Address [address] [place] [address] Care Team Providers Care Rag Willow Operator Name Role Phone Alvin FITZPATRICK MD, Andrew Saucedo Unavailable [phone] Bob Matute MD Unavailable [phone] Aaliyah Clark OT Unavailable [phone] Matteo Harp MD Primary Care Provider [phone] Allergies Active Allergy Reactions Criticality Noted Date [...] volving the immune mechanism, not elsewhere classified ([facility]) 06/08/2020 Assessment & Plan (06/08/2020 1:33 PM LINE INSTALLATION SUPERVISOR): Hx of thyroid antibodies. Check tsh. Chronic fatigue 06/08/2020 Assessment & Plan (06/08/2020 1:33 PM LINE INSTALLATION SUPERVISOR): Check tsh. Arthritis of carpometacarpal (CMC) joint of righ t thumb 05/03/2020 Overview (05/03/2020): Added automatically from request for surgery [id number] Arthritis of carpometacarpal (CMC) joint of left thumb 05/03/2020 Overview (05/29/2020): Added automatically from request for surgery [id number] Insulin pump titration 12/15/2019 Assessment & Plan [...] (12/05/2019): Added automatically from request for surgery [id number] Assessment & Plan (12/16/2019 1:32 PM CDT): S/P right total shoulder replacement yesterday. Post-operative stress may complicate glycemic management. Good glycemic management required to promote healing. Right foot pain 07/18/2019 Assessment & Plan (09/14/2019 7:27 AM LINE INSTALLATION SUPERVISOR): Was given referral for foot xray and mri but has not done it yet. Has had rt lateral mid foot pain and swelling x 2.5 months. No injury. Assessment & Plan (07/18/2019 12:41 PM LINE INSTALLATION SUPERVISOR): Will xray and Mri. Has had rt lateral mid foot pain and swelling x 2.5 months. No injury. DISH (diffuse idiopathic skeletal hyperostosis) 11/29/2018 Assessment & Plan (06/08/2020 7:27 AM LINE INSTALLATION SUPERVISOR): CXR in 11/2017 revealed DISH of the thoracic spine. Denies any back pain. Assessment & Plan (09/14/2019 7:26 AM LINE INSTALLATION SUPERVISOR): CXR in 11/2017 revealed DISH of the thoracic spine. Denies any back pain. Assessment & Plan (08/18/2019 8:14 AM LINE INSTALLATION SUPERVISOR): CXR in 11/2017 revealed DISH of the [...] 04/29/2018 Assessment & Plan (06/08/2020 1:32 PM LINE INSTALLATION SUPERVISOR): Images from the original note were not [...] 03/2019 Assessment & Plan (09/14/2019 12:29 PM LINE INSTALLATION SUPERVISOR): Images from the original note were not included. Mod cdai. Does not want to start humira at this time. [place] lost his papers and pt is upset about that and at this time does not want to start a biologic. He is going to [facility] to be with his son in [...] 03/2019 Assessment & Plan (08/19/2019 12:16 PM LINE INSTALLATION SUPERVISOR): Images from the original note were not [...] 03/2019 Assessment & Plan (07/22/2019 9:48 AM LINE INSTALLATION SUPERVISOR): Images from the original note were not [...] regarding this patient today, please call Ekaterina Farafn NP at [phone]. If after hours, please contact the Diabetes Fellow at [phone]. Hypertension, benign 11/26/2017 Assessment & Plan (04/29/2019 1:31 PM CDT): Blood pressure 146/79. He has been monitoring blood pressures at home in forwarding them to his primary care physician for possible medication adjustments. Mixed hyperlipidemia 11/26/2017 Assessment & Plan (04/29/2019 1:31 PM CDT): Continue simvastatin. Tolerating without side effects. Chronic right shoulder pain 11/26/2017 Assessment & Plan (09/14/2019 7:23 AM LINE INSTALLATION SUPERVISOR): Extensive OA on xray,ortho recommended rt shoulder replacement, pt is thinking he might have it in November 2019. Assessment & Plan (08/18/2019 8:14 AM LINE INSTALLATION SUPERVISOR): Extensive OA on xray,ortho recommended rt shoulder replacement, pt is thinking he might have it in November 2019. Assessment & Plan (07/18/2019 12:40 PM LINE INSTALLATION SUPERVISOR): Extensive OA on xray,ortho recommended rt shoulder [...] 10/03/2015 Assessment & Plan (06/08/2020 7:28 AM LINE INSTALLATION SUPERVISOR): cxr neg 05/07 (except for DISH of T spine) Xrays showed enthesophytes left heel and rt heel allx to sulfa, avoid sulfasalazine Quant gold neg 11/2018 Advised to get shingrix, flu vaccine, prevnar 14, tdap and pneumovax on 07/18/19 visit. Avise 07/07---high thyroid antibodies and a slightly elevated + ULI Assessment & Plan (09/14/2019 7:23 AM LINE INSTALLATION SUPERVISOR): cxr neg 05/07 (except for DISH of T spine) Xrays showed enthesophytes left heel and rt heel allx to sulfa, avoid sulfasalazine Quant gold neg 11/2018 Advised to get shingrix, flu vaccine, prevnar 14, tdap and pneumovax on 07/18/19 visit. Assessment & Plan (08/18/2019 8:15 AM LINE INSTALLATION SUPERVISOR): cxr neg 05/07 (except for DISH of T spine) Xrays showed enthesophytes left heel and rt heel allx to sulfa, avoid sulfasalazine Quant gold neg 11/2018 Hep B and C neg 06/2019 Avise 06/2019---high thyroid antibodies and a slightly elevated + ULI. Advised to get shingrix, flu vaccine, prevnar 14, tdap and pneumovax on 07/18/19 visit. Assessment & Plan (07/18/2019 12:42 PM LINE INSTALLATION SUPERVISOR): cxr neg 05/07 (except for DISH of [...] bilateral heels. Allergic to sulfa, avoid ssz. assisted current use of insulin 10/03/2015 Secondary diabetes [...] 01/20/2022 Surgical History Surgery Date Site/Laterality Comments [place] LITHOTRIPSY XTRCORP SHOCK WAVE Renal Lithotripsy - 04/22, 05/23, 07/24 (Added by TW Conv) KNEE SURGERY 07/20/2008 - 07/19/2009 Left Knee Surgery Left - 04/17/09 Partial left knee replacement- hardware in place FLUORO GUIDED INJECTION SHOULDER RIGHT 09/09/2019 Right VENTRAL HERNIA REPAIR 07/20/2002 - 07/19/2003 Ventral Hernia Repair - 10/14/02 (Added by TW Conv) LITHOTRIPSY 03/20/2020 - 04/18/2020 PANCREATECTOMY 07/20/2000 [...] by TW Conv) Dyspnea stress test in [place] 05/2021- denies current Cp/SOB Pain in joint Joint pain - (Ad ded by TW Conv) meterman current use of insulin (HCC) Insulin long-term [...] on file Legal Sex Male 7:20 PM LINE INSTALLATION SUPERVISOR Gender Identity Not on file Sexual Orientation [...] 5 season) 2024 10/02/2020, 08/30/2020 Influenza Vaccine (#1) 2025 , 07/26/2019, 03/20/2019, Additional history exists DTaP/Tdap/Td Vaccine (3 - Td or Tdap) 01/21/2032 01/20/2022, 08/13/2019 Hepatitis C Screening Completed 11/26/2018 Pneumococcal vaccine 65+ Completed 07/26/2019, 07/2018 Zoster Vaccine Completed 04/24/2020, 08/13/2019 Medical Devices Implanted Type Area Solution Strategist Device Identifier Shelf Expiration Date Model / Serial / Lot Ran[employer] Inc [id number] Aequalis 29mm Reverse Long Post Shoulder Baseplate Glenoid Spencer - [id number] - [id number] Implanted:Qty: 1 on 12/15/2019 by Clayton Bradley MD at [facility] Right: Shoulder Spreadsave [id number] 08/20/2022 [id number] / [id number] / Sembrairenier Inc [id number] Aequalis 36mm Center Reverse Ii Centered Sphere Glenoid Cocr 29mm - [id number] - [id number] Implanted:Qty: 1 on 12/15/2019 by Clayton Bradley MD at [facility] Right: Shoulder Spreadsave [id number] 01/12/2024 [id number] / [id number] / Sembrairenier Inc [id number] Aequalis Reversed 4.5mm 41mm Compression Glenoid Screw Baseplate - [id number] Implanted:Qty: 1 on 12/15/2019 by Clayton Bradley MD at [facility] Right: Shoulder [employer] [id number] / / Tornier Inc [id number] Aequalis Reversed 4.5mm 23mm Compression Glenoid Screw Baseplate - [id number] Implanted:Qty: 1 on 12/15/2019 by Clayton Bradley MD at [facility] Right: Shoulder [employer] [id number] / / Tornier Inc [id number] Aequalis 4.5mm 32mm Lock Multidirectional Self Tap Shoulder Screw Latex Free - [id number] Implanted:Qty: 1 on 12/15/2019 by Clayton Bradley MD at [facility] Right: Shoulder [employer] [id number] / / Tornier Inc [id number] Aequalis 4.5mm 35mm Lock Multidirectional Self Tap Shoulder Screw Latex Free - [id number] Implanted:Qty: 1 on 12/15/2019 by Clayton Bradley MD at [facility] Right: Shoulder [employer] [id number] / / Daniel [employer] [id number] 12mm 130mm Shoulder Stem Humeral Trabecular Metal Tivanium - [id number] Implanted:Qty: 1 on 12/15/2019 by Clayton Bradley MD at [facility] Right: Shoulder [employer] Inc [id number] 09/16/2029 [id number] / / [id number] [employer] Inc [id number] 36mm Reverse Humerus 7d +6mm Offset Standard Liner Shoulder - [id number] Implanted:Qty: 1 on 12/15/2019 by Clayton Bradley MD at [facility] Right: Shoulder [employer] Inc [id number] 06/18/2027 [id number] / / [id number] Arthrex Inc Ar-8978-Cp Internalbrace Kit Hand Wrist Set Implant Ligament Augmentation - [id number] Implanted:Qty: 1 on 06/17/2021 by Ray Doran MD at [facility] Left: Wrist Arthrex Inc 04/18/2026 AR-8978-CP / / [id number] Arthrex Inc Internalbrace Kit Hand Wrist Set Implant Ligament Augmentation Ar-8978-Cp - [id number] Implanted:Qty: 1 on 11/13/2022 by Ray Doran MD at [facility] Right: Wrist Arthrex Inc [id number] 04/18/2027 AR-8978-CP / / [id number] Explanted Type Area Solution Strategist Device Identifier Shelf Expiration Date Model / Serial / Lot [employer]aire [employer] [id number] Steinmann 3/32in 9in 2 Trocar Pin Fixation Nonsterile - [id number] Explanted:Qty: 1 on 12/15/2019 at [facility] Right: Shoulder [employer] [id number] S [...] Blood specimen (specimen) 02/17/2022 9:01 AM CDT us Mian Kate MD POINT OF CARE TEST [...] URINE ORDERABLES Final R esult [facility] [address] [place] [address] * Lipid panel (02/26/2021 9:15 AM CDT) [...] equation in the estimation of LDL-C. Nagi RODRIGUEZ et al. WILLIAN. 2013;310(19): 4403-3667 (http://education.Undesk.Andtix/faq/MFN060) Chol/HDL ratio 3.2 <5.0 (calc) [facility] [...] BLOOD ORDERABLES Final R esult [facility] [address] [facility] [place] [address] * (ABNORMAL) Basic metabolic panel (02/26/2021 9:15 AM CDT) Glucose 148(H) 65 - 99 mg/dL [facility] Comment: Fasting reference interval For someone without known diabetes, a glucose value >125 mg/dL indicates that they may have diabetes and this should be confirmed with a follow-up test. BUN 23 7 - 25 mg/dL [facility] Creatinine 1.01 0.70 - 1.25 mg/dL [facility] Comment: For patients >49 years of age, the reference limit for Creatinine is approximately 13% higher for people identified as -Afghan. eGFR NON-AFR. EQUATORIAL GUINEAN 77 > OR = 60 mL/min/1 .73m2 [facility] EGFR 89 > OR = 60 mL/min/1 .73m2 [facility] BUN/creat ratio NOT APPLICABLE 6 - 22 (calc) [facility] Sodium 137 135 - 146 mmol/L [facility] Potassium, pl 4.1 3.5 - 5.3 mmol/L [facility] Chloride 101 98 - 110 mmol/L [facility] CO2 31 20 - 32 mmol/L [facility] Calcium 9.5 8.6 - 10.3 mg/dL [facility] Blood specimen (specimen) 02/26/2021 9:15 AM CDT 02/26/2021 9:20 AM CDT Narrative [facility] - 03/01/2021 8:08 PM CDT FASTING:YES PATIENT REFUSED SOME TESTING; PATIENT ENCOURAGED TO RETURN. FASTING: YES us Mian Kate MD LAB BLOOD ORDERABLES Final R esult [facility] [address] [place] [address] * Hepatitis panel, acute (11/26/2018 12:10 PM CDT) Pathologist [facility] Hep A IgM Negative Negative [facility] - [...] with a HCV Nucleic Acid Amplification test ([id number]). 11/26/2018 12:1 0 PM CDT 11/26/2018 Narrative [facility] - 11/30/2018 7:06 PM CDT Performed at: [address] [place] [id number] Swimming Pool Maintenance: Charles Schmidt PhD, Phone: [phone] us Katja FALCON [facility] MICROBIOLOGY - GENERAL ORDERABLES Final Result [facility] - 01 * CT Abdomen Pelvis WO Contrast (03/08/2015 2:43 PM CDT) Anatomical Region Laterality Modality Body N/A Computed Tomogra phy 03/08/2015 2:43 PM CDT Narrative 03/08/2015 3:25 PM CDT ANA ROQUE M.D. FINAL REPORT ACC# Date Time Exam [id number] Mar 08, 2015 14:43:[id number] Abd & Pelvis wo cont EXAMINATION: [...] ROQUE M.D. on Mar 08 2015 3:25P [id number] Procedure Note Provider, MD Dmitry - 11/09/2016 ANA ROQUE M.D. FINAL REPORT ACC# Date Time Exam [id number] Mar 08, 2015 14:43:[address] Abd & Pelvis wo cont EXAMINATION: [...] ROQUE M.D. on Mar 08 2015 3:25P [id number] us Historical Provider MD SHAFFER CT PROCEDURES Final R esult from Last 3 Months or Most Recently Relevant to Health Maintenance Insurance MEDICARE [facility] MEDIC[facility] MEDICARE [facility] MEDICARE [facility] [place] [id number] Advance Directives For more information, please contact: [phone] * Full Code (Latest Code Status on File) Date Activated Date Inactivated Comments 12/15/2019 7:18 PM 12/16/2019 7:18 PM Care Teams Rag Willow Operator Relationship Specialty Start Date End Date Matteo Harp MD [address] [place] [address] PCP - General Family Practice 09/02/24 Andrew Velazquez III, MD [address] [facility] [address] [facility] [address] [place] [address] Consulting Physician Rheumatology 11/11/17 Bob Matute MD [address] [facility] [address] [facility] [address] [place] [address] Referring Physician Endocrinology Diabetes & Metabolism 12/04/17 Aaliyah Clark OT [address] [address] Occupational Therapist Occupational Therapy 10/14/19
--- OUTSIDE RECORDS SUMMARY | 2025-02-13 09:38 | XMS_ITS | Encounter Summary ---
Author Organization [facility] Address [address] [place] [address] Phone Care Team Providers Care Division Superintendent Name Role Phone Alvin FITZPATRICK MD, Andrew Saucedo Unavailable [phone] Rex Adler MD Primary Care Provider [phone] Bob Matute MD Unavailable [phone] Shalom Prater DO Primary Care Provider [phone] Aaliyah Clark OT Unavailable [phone] Ann Penn MD Primary Care Provider [phone] Matteo Harp MD Primary Care Provider [phone] Encounter Details Date Type Department Care Team (Late st Contact Info) Description 11/26/2017 Orders Only [facility] ProviderDmitry MD [address] [place] [address] Social History Tobacco Use Types Packs/Day Years Used Date Smoking Tobacco: Never Sex and Gender Information Value Date Recorded Sex Assigned at Not on file Legal Sex Male 7:20 PM SODA ROOM OPERATOR Gender Identity Not on file Sexual Orientation [...] documented as of this encounter Care Teams Division Superintendent Relationship Specialty Start Date End Date Rex Adler MD [address] [place] [address] PCP - General Internal Medicine 11/24/17 12/08/17 Shalom Prater DO [address] [place] [address] PCP - General 12/09/17 11/05/22 Ann Penn MD [address] [facility] [address] [place] [address] PCP - General Internal Medicine 11/06/22 09/01/24 Matteo Harp MD [address] [place] [address] PCP - General Family Practice 09/02/24 Andrew Esquivel III, MD [address] [place] [address] Consulting Physician Rheumatology 11/11/17 Bob Matute MD [address] [facility] [address] [place] [address] Referring Physician Endocrinology Diabetes & Metabolism 12/04/17 Aaliyah Clark OT [address] [facility] [address] [place] [address] Occupational Therapist Occupational Therapy 10/14/19 documented as of this encounter
--- OUTSIDE RECORDS SUMMARY | 2025-02-13 09:38 | XMS_ITS | Clinical Summary ---
Author Organization [facility] Address [address] [place] [address] Care Team Providers Care Vp Customer Development Name Role Phone Shalom Prater DO Primary Care Provider Allergies Active Allergy Reactions Criticality Noted Date [...] on file Legal Sex Male 2:05 PM FIXING CARPENTER Gender Identity Not on file Sexual Orientation Not on file Last Filed Vital Signs Vital Sign Reading Time Taken Comments Blood Pressure 116/68 08/29/2021 7:38 AM FIXING CARPENTER Pulse 87 08/29/2021 7:38 AM FIXING CARPENTER Temperature 36.7 C (98 F) 08/29/2021 7:38 AM FIXING CARPENTER Respiratory Rate 16 08/29/2021 7:38 AM FIXING CARPENTER Oxygen Saturation 98% 08/29/2021 7:38 AM FIXING CARPENTER Inhaled Oxygen Concentration - - Weight 97.5 kg (215 lb) 08/19/2021 12:00 PM FIXING CARPENTER Height 167.6 cm (5' 6) 08/19/2021 12:00 PM FIXING CARPENTER Body Mass Index 34.7 08/19/2021 12:00 PM FIXING CARPENTER Plan of Treatment Health Maintenance Due Date [...] this topic Medical Devices Implanted Type Area Acute Care Nurse Practitioner Device Identifier Shelf Expiration Date Model / Serial / Lot Knee Shoulder Procedures Procedure Name Priority Date/Time Associated Diagnosis Comments COLONOSCOPY Routine 08/29/2021 6:03 AM FIXING CARPENTER from Last 3 Months or Most Recently Relevant to Health Maintenance Insurance [facility] [email or web address] Care Teams Vp Customer Development Relationship Specialty Start Date End Date Shalom Prater DO [address] [place] [address] PCP - General INTERNAL MEDICINE 08/29/21
== END 2025-02-13 09:16 | disposition home or self-care (01) ==
PROVIDERS: PCP Family Medicine; Visit Provider Family Medicine
DX: M16.11 Unilateral primary osteoarthritis, right hip (principal)
CPT/HCPCS: 73502